=== PATIENT | male | born 2000 | race Asian ===

== ENCOUNTER 2020-01-05 22:38 | Inpatient (IN) | payer OTHER ==
--- NOTE | 2020-01-06 00:40 | ED ---
Psychiatric Complaint - HPI Summary HPI Summary: This patient is a 19 year old M presenting to ED with a chief complaint of paranoia since HEALTH SERVICES MANAGER. Patient reports there is a hole in his heart and he says his heart feels like its in pain. He states he woke up unconsciously 2 hours ago and put canola oil on his nervous system and left hand. He also put toothpaste on his neck and pack on a mole because he thinks its cancerous. Patient states he hasnt been sleeping for the past 2-3 days. He says that when he tries to sleep there is tingling all over his body, especially over his entire spine. He states his bones have been aching very bad. Patient says he has 4-5 days until he will be reincarnated. He thinks he will because he has a friend who because of a heart issue, and so patient thinks he will have a heart attack in his sleep. Patient is requesting a pen and paper. 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 Patient lives by himself. Patient [facility]. Patient thinks he has schizophrenia but he has never been diagnosed with it. He states he has had a problem since he was born and he thinks it is getting worse now. Patient does not take any medications. He denies using tobacco, alcohol, marijuana, and cocaine. Patient denies SI/HI. The patient rates the pain 0/10 in severity. Symptoms aggravated by nothing. Symptoms alleviated by nothing. - History Of Current Complaint Chief Complaint: EDMentalHealth Time Seen by Provider: 01/06/20 00:29 Hx Obtained From: Patient Onset/Duration: Gradual Onset Timing: Constant Severity Initially: Mild Severity Currently: Mild Aggravating Factor(s): Nothing Alleviating Factor(s): Nothing Associated Signs And Symptoms: Positive: Paranoid Behavior Has Suicidal: Denies: Thoughts Has Homicidal: Denies: Thoughts - Allergies/Home Medications Allergies/Adverse Reactions: Allergies Allergy/AdvReac Type Severity Reaction Status Date / Time No Known Allergies Allergy Unverified 01/06/20 20:24 Home Medications: Home Medications NK [No Home Medications Reported] 01/06/20 [History Confirmed 01/06/20] PMH/Surg Hx/FS Hx/Imm Hx Musculoskeletal History: Denies: Hx Rheumatoid Arthritis, Hx Osteoporosis Sensory History: Denies: Hx Legally Blind, Hx Deafness Opthamlomology History: Denies: Hx Legally Blind EENT History: Denies: Hx Deafness - Surgical History Surgical History: None Surgery Procedure, Year, and Place: Denies Infectious Disease History: No Infectious Disease History: Denies: Traveled Outside the [place] in Last 30 Days - Family History Known Family History: Negative: Hypertension, Diabetes - Social History Occupation: Unemployed Alcohol Use: None Hx Substance Use: No Substance Use Type: Reports: None Hx Tobacco Use: No Smoking Status (MU): Never Smoked Tobacco Review of Systems Cardiovascular: Other - "Hole in my heart" Skin: Other - Mole on back/neck Psychological: Other - Paranoid, negative SI/HI All Other Systems Reviewed And Are Negative: Yes Physical Exam - Summary Physical Exam Summary: Appearance: Well-appearing, Well-nourished, lying in bed comfortable Skin: Warm, dry, no obvious rash Eyes: sclera anicteric, no conjunctival pallor ENT: mucous membranes moist Neck: deferred Respiratory: No signs of respiratory distress Cardiovascular: Appears well perfused, pulses are nml Abdomen: deferred Musculoskeletal: Moving all 4 extremities without obvious discomfort Neurological: Awake and alert, mentation is normal, speech is fluent and appropriate Psychiatric: affect is normal, does not appear anxious or depressed. However he is easily distractible and has difficulty keeping a clean train of thought. He is very tangential and has multiple somatic concerns that are vaguely described. He does not seem to be suffering from internal stimuli. Triage Information Reviewed: Yes Vital Signs On Initial Exam: Initial Vitals Temp Pulse Resp BP Pulse Ox 99.3 F 104 15 158/103 97 01/05/20 22:52 01/05/20 22:52 01/05/20 22:52 01/05/20 22:52 01/05/20 22:52 Vital Signs Reviewed: Yes Procedures - Sedation Patient Received Moderate/Deep Sedation with Procedure: No Diagnostics - Vital Signs Vital Signs Temp Pulse Resp BP Pulse Ox 01/05/20 22:52 99.3 F 104 15 158/103 97 - Laboratory Result Diagrams: 01/06/20 00:45 01/06/20 00:44 Lab Statement: Any lab studies that have been ordered have been reviewed, and results considered in the medical decision making process. Course/Dx - Course Course Of Treatment: This patient is a 19 year old M presenting to ED with a chief complaint of paranoia since HEALTH SERVICES MANAGER. Blood work revealed MCH 33, anion gap 15 , glucose 102, calcium 10.6, total bilirubin 2.00, albumin 5.6. Patient is medically clear for MHE. Per Dr. Clayton, patient should be admitted, but there are no beds here, so patient will either be transferred or admitted to [facility] psych with dx of psychosis, depending on which comes first. Patient will be signed out to Dr. Gentile at 0700 on 01/06/2020 at shift change pending MH transfer. - Differential Dx/Clinical Impression Provider Diagnosis: Psychosis - Physician Notifications Discussed Care Of Patient With: Apollo Cuello Time Discussed With Above Provider: 04:45 Instructed by Provider To: Other - Discussed patient case with Apollo Cuello, social insurance analyst, who stated that Dr. Clayton, psychiatrist diagnosed with patient with psychosis and recommended the patient for admission. However, there are no beds, so the patient will either be transferred or admitted. Discharge ED - Sign-Out/Discharge Documenting (check all that apply): Sign-Out Patient Signing out patient TO: Garrick Gentile - Discharge Plan Condition: Stable Disposition: PSYCHIATRIC FACILITY-[facility] - Billing Disposition and Condition Condition: STABLE Disposition: Psychiatric Facility [facility] - Attestation Statements Document Initiated by Vicki: Yes Documenting Scribe: Alex Quinonez Provider For Whom Vicki is Documenting (Include Credential): Garrick Ken MD Scribfaisal Attestation: Alex Perez, scribed for Garrick Ken MD on 01/10/20 at 1820. Scribe Documentation Reviewed: Yes Provider Attestation: The documentation as recorded by the Alex lópez accurately reflects the service I personally performed and the decisions made by me, Garrick Ken MD Status of Scribe Document: Viewed
[2020-01-06 00:54] LABS: ABS Basophils 0.1 10^3/ul (0-0.2); ABS Lymphocytes 1.5 10^3/ul (1.0-4.8); ABS Monocytes 0.5 10^3/ul (0-0.8); ABS Neutrophils 5.2 10^3/ul (1.5-7.7); Eosinophil % 0.1 %; Hematocrit 48 % (42-52); Hemoglobin 16.9 g/dL (14.0-18.0); Lymphocyte % 20.9 %; Mean Corpuscular HGB Conc 36 g/dL (31-36); Mean Corpuscular Hemoglobin 33 pg (27-31); Mean Corpuscular Volume 92 fL (80-94); Mean Platelet Volume 9.9 fL (7.4-10.4); Platelet Count 288 10^3/uL (150-450); Red Blood Count 5.19 10^6 /uL (4.18-5.48); Red Cell Distribution Width 12 % (10-15); White Blood Count 7.2 10^3/uL (3.5-10.8)
[2020-01-06 01:06] LABS: ALT 10 U/L (7-52); AST 13 U/L (13-39); Albumin 5.6 g/dL (3.2-5.2); Albumin/Globulin Ratio 2.2 (1-3); Alkaline Phosphatase 43 U/L (34-104); Anion Gap 15 mmol/L (2-11); BUN/Creatinine Ratio 18.3 (8-20); Blood Urea Nitrogen 21 mg/dL (6-24); CO2 Carbon Dioxide 22 mmol/L (22-32); Calcium 10.6 mg/dL (8.6-10.3); Chloride 103 mmol/L (101-111); EGFR African American 99.1 (>60); EGFR Non-African American 81.9 (>60); Globulin 2.6 g/dL (2-4); Glucose 102 mg/dL (70-100); Potassium 4.1 mmol/L (3.5-5.0); Sodium 140 mmol/L (135-145); Total Protein 8.2 g/dL (6.4-8.9)
[2020-01-06 01:30] LABS: Acetaminophen < 15 mcg/mL; Alcohol < 10 mg/dL (<10); Salicylate < 2.50 mg/dL (<30)
[2020-01-06 01:45] LABS: TSH (Thyroid Stimulating Horm) 4.91 mcIU/mL (0.34-5.60)
--- NOTE | 2020-01-06 07:22 | ED ---
Progress - Progress Note Progress Note: Receiving sign-out from Dr. Ken at 0700 on 01/06/20 pending [facility] transfer. Patient continues to complain of same symptoms as before. Patient states he broke his intermittent fasting with eggs last night. He says he would like an EKG to assure that he is OK. EKG at 1116 reveals NSR at 74 BPM. This is a normal EKG. ED Physician has reviewed and interpreted this EKG. Patient will be signed out at shift change 1900 01/06/[address] Ken. Course/Dx - Course Course Of Treatment: Receiving sign-out from Dr. Ken at 0700 on 01/06/20 pending [facility] transfer. Patient continues to complain of same symptoms as before. Patient states he broke his intermittent fasting with eggs last night. He says he would like an EKG to assure that he is OK. EKG at 1116 reveals NSR at 74 BPM. This is a normal EKG. ED Physician has reviewed and interpreted this EKG. Patient will be signed out at shift change 1900 01/06/[address] Ken. - Diagnoses Provider Diagnoses: Psychosis - Provider Notifications Time Discussed With Above Provider: 04:45 Instructed by Provider To: Other - Discussed patient case with Apollo Cuello, healthcare social worker, who stated that Dr. Clayton, psychiatrist diagnosed with patient with psychosis and recommended the patient for admission. However, there are no beds, so the patient will either be transferred or admitted. Discharge ED - Sign-Out/Discharge Documenting (check all that apply): Sign-Out Patient, Receiving Sign-Out Signing out patient TO: Garrikc Ken Receiving patient FROM: Garrick Ken - Discharge Plan Condition: Stable Disposition: PSYCHIATRIC FACILITY-OTHER Referrals: Shai Toure MD [Primary Care Provider] - - Billing Disposition and Condition Condition: STABLE Disposition: Psychiatric Facility Other - Attestation Statements Document Initiated by Scribe: Yes Documenting Scribe: Ajith Vee Provider For Whom Vicki is Documenting (Include Credential): Garrick Gentile MD Scribfaisal Attestation: Ajith Perez, scribed for Garrick Gentile MD on 01/06/20 at 1915. Scribe Documentation Reviewed: Yes Provider Attestation: The documentation as recorded by the Ajith lópez accurately reflects the service I personally performed and the decisions made by me, Garrick Gentile MD Status of Scribe Document: Viewed
--- NOTE | 2020-01-06 11:24 | PN ---
ED Psychiatric Progress Note Date of Service: 01/06/20 Subjective: ED Day #1 for this 19 y.o. single, [place] male with no known psychiatric history who self-refers to the hospital, seeking admission with a list of bizarre, somatic complaints. He is quoted as telling the ED staff "I have a bunch of things happening. Mainly it is my heart that it is beating too fast and getting weaker. And, my nervous system is sending shocks through my body at about a seven out of ten. I have this weird problem since I was born that is "incurable" and I came here so I don't pass on in my mom's house and ruin the value." On exam with this clinician he is odd with poor eye contact and tells me that he is dying of "loneliness." I understand that he threw cereal inexplicably at a staff member earlier this morning. Objective: young male with dark hair, a moustache and earrings laying prone on bed; odd and non-sequitur statements; denies SI or HI Assessment: Unspecified Psychotic DO Plan: Will start trial of risperidone 1mg PO qday. No beds on Adult [facility] so will transfer to appropriate [facility] receiving facility. Vital Signs Temp Pulse Resp BP Pulse Ox 98.1 F 81 16 146/81 100 01/06/20 08:44 01/06/20 08:44 01/06/20 08:44 01/06/20 08:44 01/06/20 08:44 Lab Results - Entire Visit 01/06/20 01/06/20 00:45 00:44 WBC 7.2 RBC 5.19 Hgb 16.9 Hct 48 MCV 92 MCH 33 H MCHC 36 RDW 12 Plt Count 288 MPV 9.9 Neut % (Auto) 71.8 Lymph % (Auto) 20.9 [place] % (Auto) 6.4 Eos % (Auto) 0.1 Baso % (Auto) 0.8 Absolute Neuts (auto) 5.2 Absolute Lymphs (auto) 1.5 Absolute Monos (auto) 0.5 Absolute Eos (auto) 0.0 Absolute Basos (auto) 0.1 Absolute Nucleated RBC 0.0 Nucleated RBC % 0.0 Sodium 140 Potassium 4.1 Chloride 103 Carbon Dioxide 22 Anion Gap 15 H BUN 21 Creatinine 1.15 Est GFR ( Amer) 99.1 Est GFR (Non-Af Amer) 81.9 BUN/Creatinine Ratio 18.3 Glucose 102 H Calcium 10.6 H Total Bilirubin 2.00 H AST 13 ALT 10 Alkaline Phosphatase 43 Total Protein 8.2 Albumin 5.6 H Globulin 2.6 Albumin/Globulin Ratio 2.2 TSH 4.91 Salicylates < 2.50 Acetaminophen < 15 Serum Alcohol < 10
[2020-01-06] MEDS: risperiDONE-M * 1 MG TAB.ORADIS PO SCH (12:51)
[2020-01-06 13:03] LABS: Urine Appearance Clear; Urine Bilirubin Negative (Negative); Urine Blood Negative (Negative); Urine Color Yellow; Urine Glucose Negative (Negative); Urine Ketones 2+ (Negative); Urine Nitrite Negative (Negative); Urine Protein Negative (Negative); Urine Specific Gravity 1.018 (1.010-1.030); Urine Urobilinogen Negative (Negative)
[2020-01-06 13:14] LABS: Urine Benzodiazepine Screen None Detected (None Detect); Urine Opiates Screen None Detected (None Detect)
--- NOTE | 2020-01-06 19:59 | ED ---
Progress - Progress Note Progress Note: Patient is received as a sign out from Dr. Gentile to Dr. Ken at 1900 01/06/20 shift change pending transfer of this mental health patient. No changes in the status of this patient throughout ED shift. Patient is signed- out to Dr. Tobar at 0700 01/07/20 shift change, patient is currently slated to be transferred to another psychiatric facility. Course/Dx - Course Course Of Treatment: Patient is received as a sign out from Dr. Gentile to Dr. Ken at 1900 01/06/20 shift change pending transfer of this mental health patient. No changes in the status of this patient throughout ED shift. Patient is signed-out to Dr. Tobar at 0700 01/07/20 shift change, patient is currently slated to be transferred to another psychiatric facility. - Diagnoses Provider Diagnoses: Psychosis - Provider Notifications Time Discussed With Above Provider: 04:45 Instructed by Provider To: Other - Discussed patient case with Apollo Cuello, social media marketing analyst, who stated that Dr. Clayton, psychiatrist diagnosed with patient with psychosis and recommended the patient for admission. However, there are no beds, so the patient will either be transferred or admitted. Discharge ED - Sign-Out/Discharge Documenting (check all that apply): Sign-Out Patient, Receiving Sign-Out Signing out patient TO: Armando Tobar Receiving patient FROM: Brody Gentile - Discharge Plan Condition: Stable Disposition: [facility] - Billing Disposition and Condition Condition: STABLE Disposition: Psychiatric Facility [facility] - Attestation Statements Document Initiated by Alannahe: Yes Documenting Scribe: JESSICA WARD Provider For Whom Vicki is Documenting (Include Credential): BRODY KEN MD Scribe Attestation: JESSICA Perez, scribed for BRODY KEN MD on 01/11/20 at 0218. Scribe Documentation Reviewed: Yes Provider Attestation: The documentation as recorded by the JESSICA lópez accurately reflects the service I personally performed and the decisions made by BRODY saenz MD Status of Scribe Document: Viewed
[2020-01-06] MEDS ORDERED: OLANzapine TAB*ODT* 5 MG PO ONE (21:43)
--- NOTE | 2020-01-07 07:22 | ED ---
Progress - Progress Note Progress Note: Patient is a sign-out at 07:00 on 01/07/[address] Garrick Ken MD to Dr. Armando Tobar MD at shift change, pending mental health transfer to another psychiatric facility. At 13:20, Dr. Rod Clayton reviewed the patients case and will admit the patient to [facility] Psych. Course/Dx - Course Course Of Treatment: Patient is a sign-out at 07:00 on 01/07/[address] Garrick Ken MD to Dr. Armando Tobar MD at shift change, pending mental health transfer to another psychiatric facility. At 13:20, Dr. Rod Clayton reviewed the patients case and will admit the patient to [facility] Psych. - Diagnoses Provider Diagnoses: Psychosis - Provider Notifications Discussed Care Of Patient With: Rod Clayton - At 13:20, Dr. Rod Clayton reviewed the patients case and will admit the patient to [facility] Psych. Time Discussed With Above Provider: 13:20 Instructed by Provider To: Admit As Inpatient - Discussed patient case with Apollo Cuello, social director, who stated that Dr. Clayton, psychiatrist diagnosed with patient with psychosis and recommended the patient for admission. However, there are no beds, so the patient will either be transferred or admitted. Discharge ED - Sign-Out/Discharge Documenting (check all that apply): Patient Departure - Admit, Receiving Sign- Out Receiving patient FROM: Garrick Ken - Patient is a sign-out at 07:00 on 01/[address] Garrick Ken MD to Dr. Armando Tobar MD at shift change, pending mental health transfer to another psychiatric facility. - Discharge Plan Condition: Stable Disposition: PSYCHIATRIC FACILITY-[facility] - Attestation Statements Document Initiated by Scribe: Yes Documenting Scribe: Megan Serrano Provider For Whom Scribe is Documenting (Include Credential): Aramndo Tobar MD Scribe Attestation: Megan Perez, scribed for Armando Tobar MD on 01/07/20 at 1377. Status of Scribe Document: Ready
[2020-01-07] MEDS: risperiDONE-M * 1 MG TAB.ORADIS PO SCH (16:27)
[2020-01-07] MEDS ORDERED: Acetaminophen TAB* 325 MG PO PRN (19:40)
[2020-01-07] MEDS ORDERED: Al Hydrox/Mg Hydrox/Simet LIQ* 30 ML UDC PO PRN (19:40)
[2020-01-07] MEDS ORDERED: Haloperidol TAB* 5 MG PO PRN (19:42)
[2020-01-07] MEDS: LORazepam TAB(*) 1 MG PO PRN (20:39)
[2020-01-08 07:43] LABS: HDL Cholesterol 39.8 mg/dL
[2020-01-08] MEDS: risperiDONE-M * 1 MG TAB.ORADIS PO SCH (08:45)
[2020-01-08] MEDS: Vitamin THERAPEUTIC TAB PO SCH (08:47)
--- NOTE | 2020-01-08 17:12 | HP ---
HISTORY AND PHYSICAL: DATE OF ADMISSION: 01/07/20 PROVIDER: Tomasa Segura NP, in Psychiatry. SUPERVISING PHYSICIAN: Rod Clayton MD * (DICTATED BY TOMASA SEGURA NP) JUSTIFICATION FOR ADMISSION: The patient is in need of 24-hour supervision and care secondary to gross disorganization. CHIEF COMPLAINT: "I've heart cancer, ADHD, and schizophrenia." HISTORY OF PRESENT ILLNESS: The patient is a 19-year-old single [place] male with no history of mental illness until recently, who arrives, brought in by himself and was here on a voluntary status after feeling as though he has heart cancer and other kinds of cancer that he is not sure of in addition to other odd somatic complaints that he feels like he needs to be checked out for. "Golden" is a 19-year-old man who complains that he has ADHD and schizophrenia. He also complained that he had heart cancer. The heart cancer worry was eliminated by discussing that he had a normal EKG. He believes he has ADHD because of his hairline "one sideburn is a little bit higher than the other side." He also believes he has schizophrenia. This he states is obvious because "sometimes it's hard to say what is on my mind without background noise... when I'm sad I tell myself to calm down and I start laughing. When I' m really sad, I laugh a lot." He also states he is trying to be a child of God and in the next sentence states that he believes he is an atheist. He denies symptoms of depression. He is delusional. His focus is on the somatic. PAST PSYCHIATRIC HISTORY: He has no prior psychiatric history. He has never taken psychiatric medications. He has never been treated outpatient. When I spoke with his mother, she stated that he has never had any psychiatric symptoms and she saw no evidence of it in her home. It should be noted, however , that he did have a psychiatric evaluation in 2012 for suicide and he has dropped out of college twice for vague reasons such as wanting to be at home where it is more comfortable. FORENSIC ISSUES: He denies access to weapons. He denies any history of violence. SUBSTANCE ABUSE: He denies substance abuse. He was positive for marijuana, but he states "I tried one tiny bowl before I came to the hospital, but it's not for me." PAST MEDICAL HISTORY: He denies having medical history of any significance. FAMILY HISTORY: He said his father overuses alcohol and uses nicotine and his mother he states has a history in the family of myocardial infarction. SOCIAL HISTORY: Golden lives at home with his mother. His mother travels to [place] and is gone for many days at a time and does not always know what Golden is doing. Golden went to [employer] a few years ago, but dropped out of there, stating he wanted to be at home where it was more comfortable, according to his mother. He then went to [employer] where he was working on a degree in liberal arts or possibly nursing. He also dropped out of that. He lives alone except for when his mother is at home. Mom indicates that there is nothing that has gone wrong. It is interesting, however, that he left 2 colleges with little explanation. It is hard to get an explanation out of Golden at this time as he is quite disorganized. He is not employed. He has never been in the . He has no legal problems. REVIEW OF SYSTEMS: The patient reports feeling alert. He denies shortness of breath, heat or cold intolerance, chest pain or abdominal pain. He denies neurological symptoms. He denies fevers or changes in weight. PHYSICAL EXAMINATION GENERAL APPEARANCE: Well appearing, well nourished, sitting across me at a table comfortably. VITAL SIGNS: On 01/08/20 at 0800, temperature was 97.5, pulse 85, respirations 16, O2 sat on room air 100%, blood pressure 136/61. HEENT: Eyes: Sclerae anicteric. No conjunctival pallor. ENT: Mucous membranes moist. NECK: Deferred. RESPIRATORY: No signs of respiratory distress. CARDIOVASCULAR: Appears well perfused. Pulses are normal. ABDOMEN: Deferred. MUSCULOSKELETAL: Moving all 4 extremities without obvious discomfort. NEUROLOGICAL: Awake and alert. Mentation is normal. Speech is fluent and appropriate. SKIN: Warm, dry. No obvious rash. LABORATORY DATA: Labs are generally within normal limits. Exceptions include MCH high at 33, anion gap high at 15, glucose high at 102, calcium 10.6, total bilirubin 2, albumin 5.6. Also, please note that his hemoglobin A1c on at 0709 is 4.3, triglycerides are 94, cholesterol 137, LDL cholesterol 78, HDL cholesterol 39.8. TSH is 4.91. Urine screen: 2+ positive for urine ketones. Toxicology is positive for cannabinoids. MENTAL STATUS EXAMINATION: Donavon James is a 5-feet 8-inch, 150-pound man of [place] descent, who has a mustache and dark hair and dark eyes. He sits quite still with an erect posture. He is calm and cooperative. His speech has a normal rate, tone, and volume. He appears to be euthymic. His affect is restricted. His thought processes appear to be sequential until he comes up with an odd sentence that seems to interrupt flow of thought. He is delusional specifically about somatically focused things. He is not homicidal or suicidal. He does not indicate that he is hallucinating. His insight is poor. His judgment is poor. He is alert and oriented x4. DIAGNOSIS: Psychotic disorder. IMPRESSION: Golden is a 19-year-old man who comes to the hospital and is given a diagnosis of psychosis at this time. He came due to his beliefs that he has a variety of cancers and wanted to get checked out. In the process of getting checked out, he was flagged for mental health evaluation and has been admitted on the B[facility]. PLAN: The patient is admitted to the adult behavioral health unit and placed q.15 minute checks for his own safety. He is encouraged to participate in supportive milieu, individual and group therapies. We will start risperidone with a future prospect of injectable Invega Sustenna. Estimated length of stay is 5 to 7 days. We will titrate medications to efficacy and monitor for mood and thought content. Discharge planning will include family involvement and outpatient providers. TOMASA SEGURA, CHLOE [id number]/CPS #: [id number] JENNIFER
[2020-01-09] MEDS: LORazepam TAB(*) 1 MG PO PRN (00:22)
[2020-01-09] MEDS: Vitamin THERAPEUTIC TAB PO SCH (07:43)
[2020-01-09] MEDS: risperiDONE-M * 1 MG TAB.ORADIS PO SCH (07:43)
--- NOTE | 2020-01-09 11:28 | PN ---
Subjective - Subjective Date of Service: 01/09/20 Service Type: 06507 Hosp care 15 min low complexity Subjective: "Golden" is doing better today. He is more organized and seems aware of that. He commented that his mental health is better today. He still believes he has ADHD and suggested that Adderall might be helpful. He no longer believes he has schizophrenia and states that his statements yesterday don't ring true today. He also no longer believes he has cancer of any variety, although he remembers coming to the hospital with those complaints. He took the risperidone ODT 1 mg yesterday evening and now is willing to take 3 mg of risperidone. Objective - General Observations Appearance: Neat Appears Stated Age: Yes Stature: WNL Posture: WNL Eye Contact: Average Behavior/Activity: WNL - Interaction Observations Attitude Towards Examiner: Cooperative, Anxious, Confused Stated Mood: Dysphoric Affect: Blunted Speech Pattern/Tone: Clear, Appropriate, Normal Volume Thought Process: Coherent, Disorganized, Holloway Perception: WNL Hallucination Type: Denies Delusion Type: Denies, Somatic - Cognitive Function Orientation: A&O x 4 Level of Consciousness: Awake, Alert, Appropriate Cognition: Impaired Cognition, Impaired Ability to Abstract Estimated Intelligence: Normal Insight: Difficulty Acknowledging Presence of Psyciatric Problems Judgment Within Normal Limits: No Ability to Make Reasonable Decisions: Moderately Impaired - Medication Compliance Cooperative with Inpatient Medication Regimen: Yes - Group Participation Participates in Group Activities: Partial Assessment - Assessment Merits Inpatient Hospitalization: For Immediate Safety Clinical Impression: Donavon Wills" is a 19-year-old Micronesian man with a psychotic disorder who comes to the emergency department with delusional beliefs regarding the presence of cancers in his body and methods to treat them. Plan - Plan Treatment Plan: Name: DONAVON DACOSTA Birthdate: 2000 [id number] 01/09/2020 Golden has improved significantly since the start of Risperdal. We will increase from 1 to 3 mg tonight. Anticipate starting injectable and discharging Tuesday. Continued Medication Management: Different Medication Medications: Current Medications Acetaminophen (Tylenol Tab*) 650 mg PO Q4H PRN PRN Reason: for pain; or Temp >101 F Al Hydrox/Mg Hydrox/Simethicone (Maalox Plus*) 30 ml PO Q4H PRN PRN Reason: INDIGESTION Haloperidol (Haldol Tab*) 5 mg PO Q6H PRN PRN Reason: AGITATION Lorazepam (Ativan Tab(*)) 2 mg PO Q6H PRN PRN Reason: ANXIETY Last Admin: 01/09/20 00:22 Dose: 2 mg Multivitamins (Theragran Tab*) 1 tab PO DAILY [facility] Last Admin: 01/09/20 07:43 Dose: 1 tab Risperidone (Risperdal*) 3 mg PO BEDTIME [facility] - Discharge Plan Discharge Plan: Outpatient Follow Up Outpatient Program: [facility]
--- NOTE | 2020-01-09 16:05 | PN ---
BSU: Group Therapy Note - Service Type Service Type: 03621 Group Psychotherapy - "Golden" came to group, but he did not participate. At one point he appeared to be crying and burying his head in his hands. He stated he was fine, however. He did not add to the group. - Group Participation Patient Participating in Group: Yes Level of Group Participation: Non-participatory Relatedness to Group: Other
[2020-01-09] MEDS: risperiDONE TAB* 3 MG PO SCH (20:16)
[2020-01-10] MEDS: Vitamin THERAPEUTIC TAB PO SCH (09:45)
--- NOTE | 2020-01-10 13:38 | PN ---
Subjective - Subjective Date of Service: 01/10/20 Service Type: 81047 Hosp care 25 min moderate complexity Subjective: Donavon Wills" was found sitting at a table with his head down. When he looked up, he had tears on his face, but he didn't want to talk and only shook his head "no" when asked if he wanted to talk about it. When found later, he was in group. He was not attentive to the conversation and seemed to be thinking about other things. When taken out of the group, he had little to say, minimizing any odd thoughts and speaking as little as possible. Objective - General Observations Appearance: Neat Appears Stated Age: Yes Stature: WNL Posture: Rigid Eye Contact: Intense Behavior/Activity: Peculiar - Interaction Observations Attitude Towards Examiner: Cooperative, Evasive Stated Mood: Dysphoric Affect: Labile Speech Pattern/Tone: Clear, Appropriate, Normal Volume Thought Process: Disorganized Perception: WNL Hallucination Type: Denies Delusion Type: Denies - Cognitive Function Orientation: A&O x 4 Level of Consciousness: Awake, Alert, Appropriate Cognition: Impaired Cognition, Impaired Attention/Concentration Estimated Intelligence: Normal Insight: Difficulty Acknowledging Presence of Psyciatric Problems Judgment Within Normal Limits: No Ability to Make Reasonable Decisions: Serverely Impaired - Medication Compliance Cooperative with Inpatient Medication Regimen: Yes - Group Participation Participates in Group Activities: Partial Assessment - Assessment Merits Inpatient Hospitalization: For Immediate Safety Clinical Impression: Donavon Wills" is a 19-year-old Thai man with a psychotic disorder who comes to the emergency department with delusional beliefs regarding the presence of cancers in his body and methods to treat them. Plan - Plan Treatment Plan: Name: DONAVON DACOSTA Birthdate: 2000 [id number] 01/09/2020 Golden has improved significantly since the start of Risperdal. We will increase from 1 to 3 mg tonight. Anticipate starting injectable and discharging Tuesday. 01/10/2020 Golden has not improved as much as projected. He will not be discharged Tuesday. We will meet together again today to see how he's feeling and how he's improved , as his presentation remains bizarre and he continues to minimize what is happening to him. Medications: Current Medications Acetaminophen (Tylenol Tab*) 650 mg PO Q4H PRN PRN Reason: for pain; or Temp >101 F Al Hydrox/Mg Hydrox/Simethicone (Maalox Plus*) 30 ml PO Q4H PRN PRN Reason: INDIGESTION Haloperidol (Haldol Tab*) 5 mg PO Q6H PRN PRN Reason: AGITATION Lorazepam (Ativan Tab(*)) 2 mg PO Q6H PRN PRN Reason: ANXIETY Last Admin: 01/09/20 00:22 Dose: 2 mg Multivitamins (Theragran Tab*) 1 tab PO DAILY [facility] Last Admin: 01/10/20 09:45 Dose: Not Given Risperidone (Risperdal*) 3 mg PO BEDTIME [facility] Last Admin: 01/09/20 20:16 Dose: 3 mg
[2020-01-10] MEDS: risperiDONE TAB* 3 MG PO SCH (19:06)
[2020-01-11] MEDS: Vitamin THERAPEUTIC TAB PO SCH (10:37)
--- NOTE | 2020-01-11 16:31 | PN ---
Subjective - Subjective Date of Service: 01/11/20 Service Type: 29576 Hosp care 15 min low complexity Subjective: "Golden" reports that he feels like walking cancer and "mentally weird." In nearly the same breath, he asserts "I can't change who I am." Golden is emotionally labile, appearing quite unhappy at times and then moving into a state of calm and pleasantness that is at odds with what he seemed to be experiencing earlier. Objective - General Observations Appearance: Neat Appears Stated Age: Yes Stature: Thin Posture: WNL Eye Contact: Intense Behavior/Activity: Peculiar - Interaction Observations Attitude Towards Examiner: Cooperative, Anxious, Evasive Attitude Towards Parent/Guardian: Ignores Parent/Guardian Stated Mood: Dysphoric Affect: Labile Speech Pattern/Tone: Clear, Appropriate, Normal Volume Thought Process: Coherent, Loose Associations Perception: WNL Thought Content: Preoccupation/Ruminations, Obsessional Hallucination Type: None Delusion Type: Somatic - Cognitive Function Orientation: A&O x 4 Level of Consciousness: Awake, Alert, Appropriate Cognition: Impaired Cognition Estimated Intelligence: Normal Insight: Difficulty Acknowledging Presence of Psyciatric Problems Judgment Within Normal Limits: No Ability to Make Reasonable Decisions: Mildly Impaired - Medication Compliance Cooperative with Inpatient Medication Regimen: Yes - Group Participation Participates in Group Activities: Partial Assessment - Assessment Merits Inpatient Hospitalization: For Immediate Safety Clinical Impression: Donavon Wills" is a 19-year-old Anguillan man with a psychotic disorder who comes to the emergency department with delusional beliefs regarding the presence of cancers in his body and methods to treat them. Plan - Plan Treatment Plan: Name: DONAVON DACOSTA Birthdate: 2000 [id number] 01/09/2020 Golden has improved significantly since the start of Risperdal. We will increase from 1 to 3 mg tonight. Anticipate starting injectable and discharging Tuesday. 01/10/2020 Golden has not improved as much as projected. He will not be discharged Tuesday. We will meet together again today to see how he's feeling and how he's improved , as his presentation remains bizarre and he continues to minimize what is happening to him. 01/11/2020 Golden will stay for the weekend and then be discharged, with the caveat that he will have maintained or improved his level of functioning. Medications: Current Medications Acetaminophen (Tylenol Tab*) 650 mg PO Q4H PRN PRN Reason: for pain; or Temp >101 F Al Hydrox/Mg Hydrox/Simethicone (Maalox Plus*) 30 ml PO Q4H PRN PRN Reason: INDIGESTION Haloperidol (Haldol Tab*) 5 mg PO Q6H PRN PRN Reason: AGITATION Lorazepam (Ativan Tab(*)) 2 mg PO Q6H PRN PRN Reason: ANXIETY Last Admin: 01/09/20 00:22 Dose: 2 mg Multivitamins (Theragran Tab*) 1 tab PO DAILY [facility] Last Admin: 01/11/20 10:37 Dose: Not Given Risperidone (Risperdal*) 3 mg PO BEDTIME [facility] Last Admin: 01/10/20 19:06 Dose: 3 mg - Discharge Plan Discharge Plan: Outpatient Follow Up
[2020-01-11] MEDS: risperiDONE TAB* 3 MG PO SCH (20:15)
[2020-01-11] MEDS: Docusate CAP* 100 MG PO SCH (20:15)
[2020-01-11] MEDS: hydrOXYzine HCL TAB* 50 MG PO SCH (20:16)
[2020-01-12] MEDS: Vitamin THERAPEUTIC TAB PO SCH (09:02)
[2020-01-12] MEDS: Docusate CAP* 100 MG PO SCH ×2 (09:45→21:00)
--- NOTE | 2020-01-12 20:46 | PN ---
Subjective - Subjective Date of Service: 01/12/20 Service Type: [id number] Hosp care 15 min low complexity Subjective: Mood reported as "currently happy." Denies any psychotic symptoms. Denies any dangerous thoughts to harm self or others. Sleeping well. Reports concerns about cancer are past. Reports when he came to the hospital his ADHD was acting up, but unable to get clear on how this relates to delusions on presentation. He clarifies this as attentional deficits hampering communication. Objective - General Observations Appearance: Neat, Well Groomed Appears Stated Age: Yes Stature: WNL Posture: WNL Eye Contact: Average Behavior/Activity: Peculiar - Interaction Observations Attitude Towards Examiner: Cooperative Stated Mood: Euthymic Affect: Restricted Speech Pattern/Tone: Clear, Appropriate, Normal Volume Thought Process: Coherent, Goal Directed, Disorganized - slightly Hallucination Type: None Delusion Type: Denies - Cognitive Function Orientation: A&O x 4 Level of Consciousness: Awake, Alert, Appropriate Estimated Intelligence: Normal Insight: WNL Judgment Within Normal Limits: No Ability to Make Reasonable Decisions: Mildly Impaired - Medication Compliance Cooperative with Inpatient Medication Regimen: Yes - Group Participation Participates in Group Activities: Yes Assessment - Assessment Merits Inpatient Hospitalization: For Stabilization, For Ongoing Evaluation Clinical Impression: Donavon Wills" is a 19-year-old Comoran man with a psychotic disorder who comes to the emergency department with delusional beliefs regarding the presence of cancers in his body and methods to treat them. 01.12.20 Golden reports tonight resolution of concerns about cancer. He still presents as a bit odd, but explicit report is that all is well. Plan - Plan Treatment Plan: Name: DONAVON DACOSTA Birthdate: 2000 [id number] 01/09/2020 Golden has improved significantly since the start of Risperdal. We will increase from 1 to 3 mg tonight. Anticipate starting injectable and discharging Tuesday. 01/10/2020 Golden has not improved as much as projected. He will not be discharged Tuesday. We will meet together again today to see how he's feeling and how he's improved , as his presentation remains bizarre and he continues to minimize what is happening to him. 01/12/20 Denies any need for med adjustment or change of plan from his perspective. Reports remission of symptoms, but seems still to be minimizing his problems. Medications: Current Medications Acetaminophen (Tylenol Tab*) 650 mg PO Q4H PRN PRN Reason: for pain; or Temp >101 F Al Hydrox/Mg Hydrox/Simethicone (Maalox Plus*) 30 ml PO Q4H PRN PRN Reason: INDIGESTION Docusate Sodium (Colace Cap*) 100 mg PO BID [facility] Last Admin: 01/12/20 09:45 Dose: 100 mg Haloperidol (Haldol Tab*) 5 mg PO Q6H PRN PRN Reason: AGITATION Hydroxyzine HCl (Atarax Tab*) 50 mg PO BEDTIME [facility] Last Admin: 01/11/20 20:16 Dose: 50 mg Lorazepam (Ativan Tab(*)) 2 mg PO Q6H PRN PRN Reason: ANXIETY Last Admin: 01/09/20 00:22 Dose: 2 mg Multivitamins (Theragran Tab*) 1 tab PO DAILY [facility] Last Admin: 01/12/20 09:02 Dose: Not Given Risperidone (Risperdal*) 3 mg PO BEDTIME [facility] Last Admin: 01/11/20 20:15 Dose: 3 mg - Discharge Plan Discharge Plan: Outpatient Follow Up Outpatient Program: [facility]
[2020-01-12] MEDS: hydrOXYzine HCL TAB* 50 MG PO SCH (21:00)
[2020-01-12] MEDS: risperiDONE TAB* 3 MG PO SCH (21:00)
[2020-01-13] MEDS: Vitamin THERAPEUTIC TAB PO SCH (07:39)
[2020-01-13] MEDS: Docusate CAP* 100 MG PO SCH ×2 (09:29→20:28)
[2020-01-13] MEDS: Senna TAB 8.6 mg* TAB PO PRN (16:27)
[2020-01-13] MEDS: hydrOXYzine HCL TAB* 50 MG PO SCH (20:28)
[2020-01-13] MEDS: risperiDONE TAB* 3 MG PO SCH (20:28)
[2020-01-14] MEDS: Vitamin THERAPEUTIC TAB PO SCH (09:57)
[2020-01-14] MEDS: Docusate CAP* 100 MG PO SCH ×2 (09:57→20:19)
--- NOTE | 2020-01-14 15:38 | PN ---
Subjective - Subjective Date of Service: 01/14/20 Service Type: 49967 Hosp care 25 min moderate complexity Subjective: Catrachita Wills" is bright and seems well. He denies concern about his health and states the cancer concerns are in the past. Interestingly, he then states he wants to discuss ECT. He states he believes he had it done in the hospital here , took a nap, and then felt better. When I explained that this was an EKG and that was how we verified that his heart was okay, he seemed surprised. He is complaining of feeling "weird". It is possible that he is not enjoying the sensation of being on Risperdal; nevertheless, we will proceed with the use same medication in an effort to achieve a reduced level of psychosis and sooner discharge. Objective - General Observations Appearance: Neat, Well Groomed Appears Stated Age: No - older Stature: Thin Posture: WNL Eye Contact: Intense Behavior/Activity: Peculiar - Interaction Observations Attitude Towards Examiner: Cooperative Stated Mood: Euthymic Affect: Bright Speech Pattern/Tone: Clear, Appropriate, Normal Volume Thought Process: Coherent, Goal Directed Perception: WNL Thought Content: Preoccupation/Ruminations Hallucination Type: Denies Delusion Type: Denies, Somatic - Cognitive Function Orientation: A&O x 4 Level of Consciousness: Awake, Alert, Appropriate Cognition: Impaired Cognition Estimated Intelligence: Normal Judgment Within Normal Limits: No Ability to Make Reasonable Decisions: Mildly Impaired - Medication Compliance Cooperative with Inpatient Medication Regimen: Yes - Group Participation Participates in Group Activities: Yes Assessment - Assessment Merits Inpatient Hospitalization: For Immediate Safety Clinical Impression: Donavon Wills" is a 19-year-old Estonian man with a psychotic disorder who comes to the emergency department with delusional beliefs regarding the presence of cancers in his body and methods to treat them. BSU: Problem List - Patient Problems (1) Psychotic disorder Current Visit: Yes Status: Acute Plan - Plan Treatment Plan: Name: DONAVON DACOSTA Birthdate: 2000 [id number] 01/09/2020 Golden has improved significantly since the start of Risperdal. We will increase from 1 to 3 mg tonight. Anticipate starting injectable and discharging Tuesday. 01/10/2020 Golden has not improved as much as projected. He will not be discharged Naeem. We will meet together again today to see how he's feeling and how he's improved , as his presentation remains bizarre and he continues to minimize what is happening to him. 01/11/2020 Golden will stay for the weekend and then be discharged, with the caveat that he will have maintained or improved his level of functioning. 01/14/2020 Risperdal Consta 50 mg was ordered to be administered, with Golden's agreement. He will be discharged tomorrow. He states he is eager to get back to his life. Continued Medication Management: Different Medication Medications: Current Medications Acetaminophen (Tylenol Tab*) 650 mg PO Q4H PRN PRN Reason: for pain; or Temp >101 F Al Hydrox/Mg Hydrox/Simethicone (Maalox Plus*) 30 ml PO Q4H PRN PRN Reason: INDIGESTION Docusate Sodium (Colace Cap*) 100 mg PO BID [facility] Last Admin: 01/14/20 09:57 Dose: 100 mg Haloperidol (Haldol Tab*) 5 mg PO Q6H PRN PRN Reason: AGITATION Hydroxyzine HCl (Atarax Tab*) 50 mg PO BEDTIME [facility] Last Admin: 01/13/20 20:28 Dose: 50 mg Lorazepam (Ativan Tab(*)) 2 mg PO Q6H PRN PRN Reason: ANXIETY Last Admin: 01/09/20 00:22 Dose: 2 mg Multivitamins (Theragran Tab*) 1 tab PO DAILY [facility] Last Admin: 01/14/20 09:57 Dose: 1 tab Risperidone (Risperdal*) 3 mg PO BEDTIME [facility] Last Admin: 01/13/20 20:28 Dose: 3 mg Risperidone (Risperdal Consta*) 50 mg IM ONCE ONE Stop: 01/14/20 16:01 Senna (Senokot 8.6 Mg Tab*) 2 tab PO BID PRN PRN Reason: CONSTIPATION Last Admin: 01/13/20 16:27 Dose: 2 tab - Discharge Plan Discharge Plan: Outpatient Follow Up Outpatient Program: [facility]
[2020-01-14] MEDS ORDERED: risperiDONE CONSTA* 50 MG IM ONE (16:00)
[2020-01-14] MEDS: risperiDONE TAB* 3 MG PO SCH (20:20)
[2020-01-14] MEDS: hydrOXYzine HCL TAB* 50 MG PO SCH (20:20)
[2020-01-15 08:45] VITALS: BP 131/57
[2020-01-15] MEDS: Docusate CAP* 100 MG PO SCH ×2 (09:32→21:42)
[2020-01-15] MEDS: Vitamin THERAPEUTIC TAB PO SCH (09:32)
[2020-01-15] MEDS ORDERED: risperiDONE CONSTA* 50 MG IM ONE (10:00)
[2020-01-15] MEDS: risperiDONE TAB* 3 MG PO SCH (21:42)
[2020-01-15] MEDS: hydrOXYzine HCL TAB* 50 MG PO SCH (21:42)
[2020-01-16] MEDS: Senna TAB 8.6 mg* TAB PO PRN (05:18)
[2020-01-16] MEDS: Docusate CAP* 100 MG PO SCH (10:19)
[2020-01-16] MEDS: Vitamin THERAPEUTIC TAB PO SCH (10:19)
--- NOTE | 2020-01-18 09:26 | DS ---
CC: [facility]; Dr. Shai Toure * DISCHARGE SUMMARY: DATE OF ADMISSION: 01/07/20 DATE OF DISCHARGE: 01/16/20 PROVIDER: Tomasa Segura NP, in Psychiatry. SUPERVISING PHYSICIAN: Dr. Rod Clayton.* (DICTATED BY TOMASA SEGURA NP) DIAGNOSIS: Schizophrenia. CONDITION AT THE TIME OF DISCHARGE: Moderately improved, psychiatrically cleared, stable, participated in groups. He was slightly social with peers. He is eager for discharge. His mother was contacted, but did not respond. He was symptomatic throughout his stay, but he did take Risperdal and he tolerated that medication well. He also agreed to long-acting Risperdal Consta 50 mg. He will attend [facility]. MENTAL STATUS EXAMINATION: At the time of discharge, Golden is calm and cooperative. He makes intense eye contact. He is alert and oriented x4. His grooming is good. His speech pace is normal. His thought processes are logical. He is delusional. He is denying AH, VH, SI, and HI. He denies psychosis. Insight and judgment are fair. He states he is going to follow up. He is urged to see a therapist. DISCHARGE INSTRUCTIONS TO THE PATIENT: A. Medications: 1. Docusate 100 mg twice a day. 2. Hydroxyzine 50 mg at bedtime. 3. Risperdal 3 mg at bedtime. 4. Senna 2 tabs b.i.d. 5. Additionally, he received Risperdal Consta on 01/15/20. B. Diet is regular. C. Activities as tolerated. He is a nonsmoker. There are no studies pending at the time of discharge. D. Followup care: He is referred to [facility]. He has an appointment on 01/22/20 at 10 a.m. with Charlene Rodriguez. He is also advised to see his primary care provider, Shai Toure, within 30 days. He has also been referred to [facility]. He is going to be phoned to establish case management. His referral ID is [id number]. E. Disposition: He is going home to the home he shares with his mother. F. Substance abuse followup is not indicated. HOSPITAL COURSE: Part A: Chief complaint: "I've heart cancer, ADHD, and schizophrenia." The patient is a 19-year-old [place] male with no history of mental illness until recently, who arrives brought in by himself and was here on a voluntary status after feeling as though he has heart cancer and other kinds of cancer that he is not sure of in addition to other odd somatic complaints that he feels he needs to be checked out for. "Golden" is a 19-year-old man who complains that he has ADHD and schizophrenia. He also complained that he has heart cancer. The heart cancer worry was eliminated by discussing that he had a normal EKG. He believes he has ADHD because of his hairline "one sideburn is a little higher than the other side." He also believes he has schizophrenia. This, he states is obvious because "sometimes it's hard to say what is on my mind without background noise... when I'm sad, I tell myself to calm down and I start laughing. When I'm really sad, I laugh a lot." He also states he is trying to be a child of God and in the next sentence that he believes he is an atheist. He denies symptoms of depression. He is delusional. His focus is on the somatic. Part B: Psychiatric treatment was rendered: Golden was admitted to the adult behavioral unit and placed on 15-minute checks for safety. Golden behaved well on the unit and he went to groups. He did not interact with peers very much. He tolerated the addition of Risperdal, although he did not particularly like it and he did agree to take the injection of 50 mg of Risperdal Consta on . As he is on an antipsychotic, it is important to note that his hemoglobin A1c is 4.3, triglycerides are 94, cholesterol 137, LDL cholesterol 78, HDL 39.8. I did meet with his mother. It is important to note that when she visited him, he avoided her. She came several times and he would walk around the unit without her, he would take a shower multiple times while she was there, and he tended to avoid her in general. When I met with her, she did not perceive anything to be wrong. She stated that he has been fine until recently. It also should be noted that his mother is not home all the time as she travels to [place] for work and stays there for days at a time. No consults were entered for Golden. He is improved. He denies somatic complaints. He states his worries about cancer are over and long in the past. He does have odd believes such as wanting ECT because it helped him feel better. His interpretation of ECT, however, is the EKG he received in the emergency department. Golden will benefit from continued medication therapy. He was prescribed Risperdal on discharge, although the last day he was here he did decline to take it, and therefore, his coverage of antipsychotic may be too low until the Consta takes effect in a few weeks. TOMASA SEGURA, CHLOE [id number]/[facility] #: [id number] MTDD
== END 2020-01-16 13:00 | disposition home or self-care (01) | DRG 751 ==
LOC: ED 22:38 → BSU 01-07 11:19
PROVIDERS: ADMIT Psychiatry & Neurology Psychiatry; ATTEND Psychiatry & Neurology Psychiatry
DX: F29 Unspecified psychosis not due to a substance or known physiological condition (principal); Z81.1 Family history of alcohol abuse and dependence; Z81.2 Family history of tobacco abuse and dependence; Z82.49 Family history of ischemic heart disease and other diseases of the circulatory system
CPT/HCPCS: 36415; 80053; 80061; 80307; 80320; 80329; 81003; 83036; 84443; 85025; 93005; 99222; 99231; 99232; 99238; 99284; A9270-GY; G0480

== ENCOUNTER 2020-01-17 02:36 | Emergency (ER) | payer OTHER ==
[2020-01-17 03:16] LABS: ABS Basophils 0.1 10^3/ul (0-0.2); ABS Eosinophils 0.1 10^3/ul (0-0.6); ABS Lymphocytes 1.7 10^3/ul (1.0-4.8); ABS Monocytes 0.6 10^3/ul (0-0.8); ABS Neutrophils 3.7 10^3/ul (1.5-7.7); Eosinophil % 1.1 %; Hematocrit 45 % (42-52); Hemoglobin 15.4 g/dL (14.0-18.0); Lymphocyte % 28.1 %; Mean Corpuscular HGB Conc 34 g/dL (31-36); Mean Corpuscular Hemoglobin 32 pg (27-31); Mean Corpuscular Volume 93 fL (80-94); Nucleated Red Blood Cells % 0.1; Platelet Count 294 10^3/uL (150-450); Red Blood Count 4.85 10^6 /uL (4.18-5.48); Red Cell Distribution Width 12 % (10-15); White Blood Count 6.1 10^3/uL (3.5-10.8)
--- NOTE | 2020-01-17 03:20 | ED ---
Psychiatric Complaint - HPI Summary HPI Summary: 19 year old M arriving via private car to [facility] complains of worsening depression since 12 hours ago. Patient was recently admitted to [facility] for 1 week. He was discharged from [facility] yesterday 01/16/2020 PM. Patient states his mother came home suddenly which stressed him out and worsened his depression. Patient denies suicidal ideation. Symptoms aggravated by recent stress. Symptoms alleviated by nothing. Medications reviewed. PMHx reviewed. Surgical hx reviewed. FHx reviewed. No alcohol, recreational drug or tobacco use prior to arrival today. - History Of Current Complaint Chief Complaint: EDMentalHealth Time Seen by Provider: 01/17/20 02:58 Hx Obtained From: Patient Onset/Duration: Lasting Hours - 12, Still Present Timing: Constant Aggravating Factor(s): Recent Stress Alleviating Factor(s): Nothing Has Suicidal: Denies: Thoughts - Allergies/Home Medications Allergies/Adverse Reactions: Allergies Allergy/AdvReac Type Severity Reaction Status Date / Time No Known Allergies Allergy Verified 01/17/20 03:12 Home Medications: Home Medications Docusate CAP* [Colace Cap*] 100 mg PO BID #60 cap 01/16/20 [Rx Confirmed ] Senna TAB 8.6 mg* [Senokot 8.6 mg TAB*] 2 tab PO BID PRN #30 tab 01/16/20 [Rx Confirmed 01/17/20] hydrOXYzine HCL TAB* [Atarax TAB 50 MG *] 50 mg PO BEDTIME #30 tab 01/16/20 [Rx Confirmed 01/17/20] risperiDONE TAB* [Risperdal*] 3 mg PO BEDTIME #30 tab 01/16/20 [Rx Confirmed ] PMH/Surg Hx/FS Hx/Imm Hx Endocrine/Hematology History: Denies: Hx Diabetes Cardiovascular History: Denies: Hx Hypertension Psychiatric History: Reports: Hx Schizophrenia - Surgical History Surgery Procedure, Year, and Place: Denies - Immunization History Immunizations Up to Date: Yes Infectious Disease History: No Infectious Disease History: Denies: Traveled Outside the [place] in Last 30 Days - Family History Known Family History: Negative: Hypertension, Diabetes - Social History Alcohol Use: None Hx Substance Use: Yes Substance Use Type: Reports: Marijuana Substance Use Comment - Amount & Last Used: not often, most recently Nov 2019 Hx Tobacco Use: No Smoking Status (MU): Never Smoked Tobacco Review of Systems - ROS Summary Review of Systems Summary: Home Medications Medication Instructions Recorded Confirmed Type Docusate CAP* [Colace Cap*] 100 mg PO BID #60 cap 01/16/20 01/17/20 Rx Senna TAB 8.6 mg* [Senokot 8.6 mg 2 tab PO BID PRN #30 tab 01/16/20 01/17/20 Rx TAB*] hydrOXYzine HCL TAB* [Atarax TAB 50 mg PO BEDTIME #30 tab 01/16/20 01/17/20 Rx 50 MG *] risperiDONE TAB* [Risperdal*] 3 mg PO BEDTIME #30 tab 01/16/20 01/17/20 Rx Negative: Fever Positive: Depressed, Other - NEG: SI All Other Systems Reviewed And Are Negative: Yes Physical Exam - Summary Physical Exam Summary: General: Well-developed, Well-nourished MALE. No acute distress. HEENT: Normocephalic, Atraumatic. Eyes: Conjuctiva normal, PERRL. Oropharynx: Clear, mucous membranes moist, (-) exudates. Neck: Soft, FROM, (-) lymphadenopathy, (-) thyromegaly, (-) JVD. Cardiovascular: Normal sinus rhythm, (-) murmur. Lungs: Clear to auscultation bilaterally (-) wheezes, (-) rales, (-) rhonchi. Abdomen: Soft, non-tender, non-distended, (-) organomegaly, normal bowel sounds. Back: (-) CVA tenderness Extremities: No edema. Skin: Warm, dry, (-) rash. Neuro: Alert and oriented x3, moves all extremities equally. No ataxia. No gait disturbance. No sensory deficit. Normal strength, normal sensation. Psychiatric: Patient is withdrawn and quiet. Sad affect Triage Information Reviewed: Yes Vital Signs On Initial Exam: Initial Vitals Temp Pulse Resp BP Pulse Ox 98.9 F 84 16 142/88 100 01/17/20 02:40 01/17/20 02:40 01/17/20 02:40 01/17/20 02:40 01/17/20 02:40 Vital Signs Reviewed: Yes Procedures - Sedation Patient Received Moderate/Deep Sedation with Procedure: No Diagnostics - Vital Signs Vital Signs Temp Pulse Resp BP Pulse Ox 01/17/20 02:40 98.9 F 84 16 142/88 100 - Laboratory Result Diagrams: 01/17/20 03:08 01/17/20 03:08 Lab Statement: Any lab studies that have been ordered have been reviewed, and results considered in the medical decision making process. Re-Evaluation - Re-Evaluation First Eval Re-Evaluation Time: 03:34 Comment: patient is medically cleared for MHE Course/Dx - Course Course Of Treatment: 19-year-old Burmanese male presents from home for depression. Patient states he does not feel well. He notes that he was discharged from the [facility] earlier today. he was in for about a week. Was started on Risperdal and then received a long-acting injection of Risperdal. prior To discharge. he states things became suddenly worse today when his mother came home. He is a very poor historian. Does not give a lot of detail but describes this as very stressful for him. Makes his mental illnesses worse. It is unclear exactly what his diagnoses are. According to his discharge he was admitted for psychotic episode and disorganized behavior. Patient is very cooperative. No significant findings on physical or laboratories. Patient is seen by mental health. It is recommended that he be held here until the psychiatrist can see him this morning.patient signed out at change of shift awaiting evaluation from psychiatrist. - Differential Dx/Clinical Impression Provider Diagnosis: Depression - Physician Notifications Time Discussed With Above Provider: 05:00 Instructed by Provider To: Other - Psychiatric transportation inspector reviewed case with Dr. Sharma. They recommend MH hold until patient can be seen by psychiatrist who treated patient at patient's most recent [facility] admission. Discharge ED - Sign-Out/Discharge Documenting (check all that apply): Sign-Out Patient Signing out patient TO: Marito Gamboa - Discharge Plan Referrals: Shai Toure MD [Primary Care Provider] - - Attestation Statements Document Initiated by Geraldineibe: Yes Documenting Scribe: Sierra Méndez Provider For Whom Vicki is Documenting (Include Credential): Joanne Clark MD Scribe Attestation: Sierra Perez, scribed for Joanne Clark MD on 01/17/20 at 0507. Scribe Documentation Reviewed: Yes Provider Attestation: The documentation as recorded by the Sierra lópez accurately reflects the service I personally performed and the decisions made by me, Joanne Clark MD Status of Scribe Document: Viewed
[2020-01-17 03:32] LABS: ALT 20 U/L (7-52); AST 26 U/L (13-39); Albumin 5.6 g/dL (3.2-5.2); Albumin/Globulin Ratio 2.2 (1-3); Alkaline Phosphatase 38 U/L (34-104); Anion Gap 8 mmol/L (2-11); BUN/Creatinine Ratio 16.5 (8-20); Blood Urea Nitrogen 15 mg/dL (6-24); CO2 Carbon Dioxide 26 mmol/L (22-32); Calcium 10.6 mg/dL (8.6-10.3); Chloride 103 mmol/L (101-111); EGFR African American 129.9 (>60); EGFR Non-African American 107.3 (>60); Globulin 2.5 g/dL (2-4); Glucose 91 mg/dL (70-100); Potassium 3.6 mmol/L (3.5-5.0); Sodium 137 mmol/L (135-145); Total Protein 8.1 g/dL (6.4-8.9)
[2020-01-17 04:06] LABS: Acetaminophen < 15 mcg/mL; Alcohol < 10 mg/dL (<10); Salicylate < 2.50 mg/dL (<30)
[2020-01-17 04:21] LABS: TSH (Thyroid Stimulating Horm) 8.68 mcIU/mL (0.34-5.60)
[2020-01-17 04:46] LABS: Urine Appearance Clear; Urine Bilirubin Negative (Negative); Urine Blood Negative (Negative); Urine Color Straw; Urine Glucose Negative (Negative); Urine Ketones Negative (Negative); Urine Nitrite Negative (Negative); Urine Protein Negative (Negative); Urine Specific Gravity 1.006 (1.010-1.030); Urine Urobilinogen Negative (Negative)
[2020-01-17 05:04] LABS: Urine Benzodiazepine Screen None Detected (None Detect); Urine Opiates Screen None Detected (None Detect)
--- NOTE | 2020-01-17 07:07 | ED ---
Progress - Progress Note Progress Note: Patient is a sign-out at 07:00 on 01/17/[address] Joanne Clark MD to Dr. Marito Gamboa MD at shift change, pending mental health hold and disposition. At 09:00, political geographer reports that the patient's case was reviewed by a provider under Dr. Rod Clayton who will discharge the patient with a diagnosis of psychosis. Patient will be discharged with a diagnosis of psychosis. - Results/Orders Results/Orders: Docusate CAP* [Colace Cap*] 100 mg PO BID #60 cap 01/16/20 [Rx Confirmed ] Senna TAB 8.6 mg* [Senokot 8.6 mg TAB*] 2 tab PO BID PRN #30 tab 01/16/20 [Rx Confirmed 01/17/20] hydrOXYzine HCL TAB* [Atarax TAB 50 MG *] 50 mg PO BEDTIME #30 tab 01/16/20 [Rx Confirmed 01/17/20] risperiDONE TAB* [Risperdal*] 3 mg PO BEDTIME #30 tab 01/16/20 [Rx Confirmed ] Re-Evaluation - Re-Evaluation First Eval Re-Evaluation Time: 03:34 Comment: patient is medically cleared for MHE Course/Dx - Diagnoses Provider Diagnoses: Depression, Psychosis - Provider Notifications Discussed Care Of Patient With: Rod Clayton - At 09:00, political geographer reports that the patient's case was reviewed by a provider under Dr. Rod Clayton who will discharge the patient with a diagnosis of psychosis. Time Discussed With Above Provider: 09:00 Instructed by Provider To: Other - Discharge Discharge ED - Sign-Out/Discharge Documenting (check all that apply): Patient Departure - Discharge, Receiving Sign-Out Receiving patient FROM: Joanne Clark - Patient is a sign-out at 07:[address] Joanne Clark MD to Dr. Marito Gamboa MD at shift change, pending mental health hold and disposition. - Discharge Plan Condition: Stable Disposition: HOME Referrals: Shai Toure MD [Primary Care Provider] - - Attestation Statements Document Initiated by Scribe: Yes Documenting Scribe: Megan Serrano Provider For Whom Scribe is Documenting (Include Credential): Marito Gamboa MD Scribe Attestation: IMegan, scribed for Marito Gamboa MD on 01/17/20 at 0915. Status of Scribe Document: Ready
[2020-01-17 09:32] VITALS: BP 146/83
== END 2020-01-17 09:27 | disposition home or self-care (01) ==
LOC: ED 02:36
DX: F32.9 Major depressive disorder, single episode, unspecified (principal); F29 Unspecified psychosis not due to a substance or known physiological condition; F20.9 Schizophrenia, unspecified; Z79.899 Other long term (current) drug therapy
CPT/HCPCS: 36415; 80053; 80307; 80320; 80329; 81003; 84443; 85025; 99285; G0480

== ENCOUNTER → 2020-01-18 00:24 | Emergency (ER) | payer OTHER ==
[~2020-01-18 00:24] MED LIST: hydrOXYzine HCL TAB* 25 MG PO ONE; risperiDONE TAB* 3 MG PO ONE
--- NOTE | 2020-01-18 00:47 | ED ---
Psychiatric Complaint - HPI Summary HPI Summary: This pt is a 19 Y/O M presenting to [facility] with a CC of hearing himself talking in his head. He states that he is unable to sleep or stay still in bed. He has recently started taking Risperdal. He states that his thoughts are very quick and jump around from topic to topic. He states that he hears himself talking in his head without any end. He denies hearing any auditory hallucinations, vomiting, nausea, headaches, HI, SI, and fevers. Medications reviewed. Allergies noted. He denies any alcohol use, drug use, or cigarette use. He states that he is currently living at [place] [id number] and is currently out of a job and not in school. He states that he believes he has schizophrenia due to a trauma he experienced with his family. Home Medications Medication Instructions Recorded Confirmed Type Docusate CAP* [Colace Cap*] 100 mg PO BID #60 cap 01/16/20 01/17/20 Rx Senna TAB 8.6 mg* [Senokot 8.6 mg 2 tab PO BID PRN #30 tab 01/16/20 01/17/20 Rx TAB*] hydrOXYzine HCL TAB* [Atarax TAB 50 mg PO BEDTIME #30 tab 01/16/20 01/17/20 Rx 50 MG *] risperiDONE TAB* [Risperdal*] 3 mg PO BEDTIME #30 tab 01/16/20 01/17/20 Rx - History Of Current Complaint Chief Complaint: EDMentalHealth Time Seen by Provider: 01/18/20 00:26 Accompanied By: no one Hx Obtained From: Patient Onset/Duration: Still Present Timing: Constant Severity Initially: Moderate Severity Currently: Moderate Aggravating Factor(s): Nothing Alleviating Factor(s): Nothing Associated Signs And Symptoms: Positive: Sleep Disturbance Related History: Positive For: Prior Psychiatric Issues Has Suicidal: Denies: Thoughts, With A Plan Has Homicidal: Denies: Thoughts, With A Plan - Allergies/Home Medications Allergies/Adverse Reactions: Allergies Allergy/AdvReac Type Severity Reaction Status Date / Time No Known Allergies Allergy Verified 01/17/20 03:12 Home Medications: Home Medications Docusate CAP* [Colace Cap*] 100 mg PO BID #60 cap 01/16/20 [Rx Confirmed ] Senna TAB 8.6 mg* [Senokot 8.6 mg TAB*] 2 tab PO BID PRN #30 tab 01/16/20 [Rx Confirmed 01/17/20] hydrOXYzine HCL TAB* [Atarax TAB 50 MG *] 50 mg PO BEDTIME #30 tab 01/16/20 [Rx Confirmed 01/17/20] risperiDONE TAB* [Risperdal*] 3 mg PO BEDTIME #30 tab 01/16/20 [Rx Confirmed ] PMH/Surg Hx/FS Hx/Imm Hx Previously Healthy: Yes Endocrine/Hematology History: Denies: Hx Diabetes Cardiovascular History: Denies: Hx Hypertension Musculoskeletal History: Denies: Hx Rheumatoid Arthritis, Hx Osteoporosis Sensory History: Denies: Hx Contacts or Glasses, Hx Legally Blind, Hx Deafness, Hx Hearing Aid Opthamlomology History: Denies: Hx Contacts or Glasses, Hx Legally Blind Psychiatric History: Reports: Hx Attention Deficit Hyperactivity Disorder, Hx Depression, Hx Schizophrenia Denies: Hx Eating Disorder, Hx Post Traumatic Stress Disorder, Hx Bipolar Disorder, Hx Suicide Attempt - Cancer History Hx Chemotherapy: No Hx Radiation Therapy: No - Surgical History Surgical History: None Surgery Procedure, Year, and Place: Denies - Immunization History Immunizations Up to Date: Yes Infectious Disease History: No Infectious Disease History: Denies: Traveled Outside the US in Last 30 Days - Family History Known Family History: Negative: Hypertension, Diabetes - Social History Occupation: Unemployed Lives: Alone Alcohol Use: None Alcohol Amount: "It depends" Hx Substance Use: No Substance Use Type: Reports: None Substance Use Comment - Amount & Last Used: not often, most recently Nov 2019 Hx Tobacco Use: No Smoking Status (MU): Never Smoked Tobacco Review of Systems Negative: Fever Negative: Vomiting, Nausea Negative: Headache Psychological: Other - NEGATIVE: HI, SI, auditory hallucinations All Other Systems Reviewed And Are Negative: Yes Physical Exam - Summary Physical Exam Summary: Constitutional: Well-developed, Well-nourished, Alert. (-) Distressed Skin: Warm, Dry HENT: Normocephalic; Atraumatic Eyes: Conjunctiva normal Neck: Musculoskeletal ROM normal neck. (-) JVD, (-) Stridor, (-) Tracheal deviation Cardio: Rhythm regular, rate normal, Heart sounds normal; Intact distal pulses; Radial pulses are 2+ and symmetric. (-) Murmur Pulmonary/Chest wall: Effort normal. (-) Respiratory distress, (-) Wheezes, (-) Rales Abd: Soft, (-) tenderness, (-) Distension, (-) Guarding, (-) Rebound Musculoskeletal: (-) Edema Lymph: (-) Cervical adenopathy Neuro: Alert, Oriented x3 Psych: Mood normal, flat affect Triage Information Reviewed: Yes Vital Signs On Initial Exam: Initial Vitals Temp Pulse Resp BP Pulse Ox 97.2 F 78 18 147/92 98 01/18/20 00:27 01/18/20 00:27 01/18/20 00:27 01/18/20 00:27 01/18/20 00:27 Vital Signs Reviewed: Yes Procedures - Sedation Patient Received Moderate/Deep Sedation with Procedure: No Diagnostics - Vital Signs Vital Signs Temp Pulse Resp BP Pulse Ox 01/18/20 00:27 97.2 F 78 18 147/92 98 - Laboratory Lab Statement: Any lab studies that have been ordered have been reviewed, and results considered in the medical decision making process. Course/Dx - Course Course Of Treatment: Patient is here with mental health issues. Patient was medically cleared by myself. Patient was signed out to Dr. Wilkinson is pending disposition by mental health team - Differential Dx/Clinical Impression Provider Diagnosis: Psychotic disorder Discharge ED - Sign-Out/Discharge Documenting (check all that apply): Sign-Out Patient Signing out patient TO: Beatrice Elias - Discharge Plan Condition: Stable Disposition: HOME Referrals: Shai Toure MD [Primary Care Provider] [facility], APPLICATION, OTHER] - (You have an intake appointment scheduled on January 22 at 10:00 am with Charlene Rodriguez. ) - Billing Disposition and Condition Condition: STABLE Disposition: Home - Attestation Statements Document Initiated by Scribe: Yes Documenting Scribe: Chang Flores Provider For Whom Scribe is Documenting (Include Credential): Jose Andres MD Scribe Attestation: Chang Perez, scribed for Jose Andres MD on 01/19/20 at 0730. Scribe Documentation Reviewed: Yes Provider Attestation: The documentation as recorded by the scribeChang accurately reflects the service I personally performed and the decisions made by me, Jose Andres MD Status of Scribe Document: Viewed
[2020-01-18 02:48] LABS: Urine Benzodiazepine Screen None Detected (None Detect); Urine Opiates Screen None Detected (None Detect)
--- NOTE | 2020-01-18 02:56 | ED ---
Progress - Progress Note Progress Note: This pt is a sign out to Dr. Jada MD from Dr. Dmitry MD at 0200 01/18/2020 pending MHE and dispo. Course/Dx - Course Course Of Treatment: This pt is a sign out to Dr. Jada MD from Dr. Dmitry MD at 0200 01/18/2020 pending MHE and dispo. Dr. Hernández, psychiatrist, stated that the pt will be placed on a MHU Hold until the morning when Dr. Clayton will review the pt's case and provide a MHE. This pt will be signed out to Dr. Tobar from Dr. Elias pending a MHE from Dr. Clayton and disposition. - Diagnoses Provider Diagnoses: Psychotic disorder - Provider Notifications Discussed Care Of Patient With: Gil Hernández Time Discussed With Above Provider: 02:49 Instructed by Provider To: Have Pt Call For Appt. - Dr. Hernández, psychiatrist, stated that the pt will be placed on a MHU Hold until the morning when Dr. Clayton will review the pt's case and provide a MHE. Discharge ED - Sign-Out/Discharge Documenting (check all that apply): Sign-Out Patient, Receiving Sign-Out Signing out patient TO: Lang Tobar Receiving patient FROM: Jose Andres - Discharge Plan Condition: Stable Referrals: Shai Toure MD [Primary Care Provider] - - Billing Disposition and Condition Condition: STABLE - Attestation Statements Document Initiated by Scribe: Yes Documenting Scribe: Chang Flores Provider For Whom Vicki is Documenting (Include Credential): Beatrice Dickens MD Scribe Attestation: Chang Perez, scribed for Beatrice Elias MD on 01/18/20 at 0744. Scribe Documentation Reviewed: Yes Provider Attestation: The documentation as recorded by the Chang lópez accurately reflects the service I personally performed and the decisions made by me, Beatrice Elias MD Status of Scribe Document: Viewed
--- NOTE | 2020-01-18 07:05 | ED ---
Progress - Progress Note Progress Note: The patient is a sign-out from Dr. Beatrice Elias MD, to Dr. Manuel Tobar DO, at change of shift at 0700 on 01/18/2020, pending psychiatric evaluation and disposition. Dr. Clayton and mental health team have evaluated the patient's case and determined that he is safe for discharge at this time, diagnosis of unspecified psychotic disorder. Course/Dx - Course Course Of Treatment: The patient is a sign-out from Dr. Beatrice Dickens MD, to Dr. Manuel Tobar DO, at change of shift at 0700 on , pending psychiatric evaluation and disposition. Dr. Clayton and mental health team have evaluated the patient's case and determined that he is safe for discharge at this time, diagnosis of unspecified psychotic disorder. - Diagnoses Provider Diagnoses: Psychotic disorder - Provider Notifications Discussed Care Of Patient With: Rod Clayton - psychiatry Time Discussed With Above Provider: 08:55 Instructed by Provider To: Other - Dr. Clayton and psych team have cleared patient for d/c with outpatient f/u as needed Discharge ED - Sign-Out/Discharge Documenting (check all that apply): Patient Departure - Patient will be discharged home by [facility] staff., Receiving Sign-Out Receiving patient FROM: Beatrice Elias - Patient is a sign-out from Dr. Beatrice Elias MD at 0700 on 01/18/2020, pending MHE and disposition. - Discharge Plan Condition: Stable Disposition: HOME Referrals: Shai Toure MD [Primary Care Provider] - [facility] [[employer], APPLICATION, OTHER] - (You have an intake appointment scheduled on January 22 at 10:00 am with Charlene Rodriguez. ) - Billing Disposition and Condition Condition: STABLE Disposition: Home - Attestation Statements Document Initiated by Scribe: Yes Documenting Scribe: Adry Abdul Provider For Whom Scribe is Documenting (Include Credential): Dr. Manuel Tobar DO Scribe Attestation: Adry Perez, scribed for Dr. Manuel Tobar DO on 01/18/20 at 1304. Scribe Documentation Reviewed: Yes Provider Attestation: The documentation as recorded by the elyssaibeAdry accurately reflects the service I personally performed and the decisions made by me, Dr. Manuel Tobar, DO Status of Scribe Document: Viewed Procedures - Sedation Patient Received Moderate/Deep Sedation with Procedure: No
[2020-01-18 09:26] VITALS: BP 117/73
== END | disposition home or self-care (01) ==
LOC: ED 00:24
DX: F23 Brief psychotic disorder (principal)
CPT/HCPCS: 80307; 99284; A9270-GY; G0480

== ENCOUNTER 2020-01-24 00:59 | Emergency (ER) | payer OTHER ==
[2020-01-24] MEDS ORDERED: hydrOXYzine HCL TAB* 50 MG PO ONE (01:35)
--- NOTE | 2020-01-24 01:36 | ED ---
Complex/Multi-Sys Presentation - HPI Summary HPI Summary: Patient complains of restlessness, insomnia, intermittent itching all over 2 days. Patient started on Risperdal 4 days ago. Patient has taken before during admission to [facility]. Patient prescribed Risperdal by Dr. Randolph at [facility]. Patient denies any mental health issues at this time, HR, SI, hallucinations. Denies any other symptoms, pain or injury. - History Of Current Complaint Chief Complaint: EDGeneral Time Seen by Provider: 01/24/20 01:13 Hx Obtained From: Patient Onset/Duration: Gradual Onset, Lasting Days Timing: Intermittent, Lasting: Severity Currently: Moderate Severity Initially: Mild - Allergies/Home Medications Allergies/Adverse Reactions: Allergies Allergy/AdvReac Type Severity Reaction Status Date / Time No Known Allergies Allergy Verified 01/24/20 10:00 Home Medications: Home Medications Docusate CAP* [Colace Cap*] 100 mg PO BID #60 cap 01/16/20 [Rx Confirmed ] Senna TAB 8.6 mg* [Senokot 8.6 mg TAB*] 2 tab PO BID PRN #30 tab 01/16/20 [Rx Confirmed 01/24/20] hydrOXYzine HCL TAB* [Atarax TAB 50 MG *] 50 mg PO BEDTIME #30 tab 01/16/20 [Rx Confirmed 01/24/20] risperiDONE TAB* [Risperdal*] 3 mg PO BEDTIME #30 tab 01/16/20 [Rx Confirmed ] Polyethylene Glycol 3350* [Miralax (17 GM DOSE SUNG)] 17 gm PO DAILY #14 packet 01/24/20 [Rx] PMH/Surg Hx/FS Hx/Imm Hx Endocrine/Hematology History: Denies: Hx Diabetes Cardiovascular History: Denies: Hx Hypertension History: Denies: Hx Dialysis Musculoskeletal History: Denies: Hx Rheumatoid Arthritis, Hx Osteoporosis Sensory History: Denies: Hx Contacts or Glasses, Hx Legally Blind, Hx Deafness, Hx Hearing Aid Opthamlomology History: Denies: Hx Contacts or Glasses, Hx Legally Blind EENT History: Denies: Hx Deafness Neurological History: Denies: Hx Dementia Psychiatric History: Reports: Hx Attention Deficit Hyperactivity Disorder, Hx Depression, Hx Schizophrenia Denies: Hx Eating Disorder, Hx Post Traumatic Stress Disorder, Hx Bipolar Disorder, Hx Suicide Attempt - Cancer History Hx Chemotherapy: No Hx Radiation Therapy: No - Surgical History Surgery Procedure, Year, and Place: Denies Infectious Disease History: No Infectious Disease History: Denies: Traveled Outside the US in Last 30 Days - Family History Known Family History: Negative: Hypertension, Diabetes - Social History Alcohol Use: None Alcohol Amount: "It depends" Hx Substance Use: No Substance Use Type: Reports: None Substance Use Comment - Amount & Last Used: not often, most recently Nov 2019 Hx Tobacco Use: No Smoking Status (MU): Never Smoked Tobacco Review of Systems Constitutional: Negative Eyes: Negative ENT: Negative Cardiovascular: Negative Respiratory: Negative Gastrointestinal: Negative Genitourinary: Negative Musculoskeletal: Negative Skin: Other Neurological/Mental Status: Negative Psychological: Normal All Other Systems Reviewed And Are Negative: Yes Physical Exam - Summary Physical Exam Summary: No rash noted. ENT exam normal. Lung sounds clear to auscultation bilaterally. Patient anxious but cooperative and coherent. No tremors noted. Triage Information Reviewed: Yes Vital Signs On Initial Exam: Initial Vitals Temp Pulse Resp BP Pulse Ox 97 F 75 16 112/83 98 01/24/20 01:01 01/24/20 01:01 01/24/20 01:01 01/24/20 01:01 01/24/20 01:01 Vital Signs Reviewed: Yes Appearance: Positive: Well-Appearing Skin: Positive: Warm Head/Face: Positive: Normal Head/Face Inspection Eyes: Positive: Normal ENT: Positive: Normal ENT inspection Neck: Positive: Supple Respiratory/Lung Sounds: Positive: Clear to Auscultation Cardiovascular: Positive: Normal Abdomen Description: Positive: Nontender Musculoskeletal: Positive: Normal Neurological: Positive: Normal Psychiatric: Positive: Normal AVPU Assessment: Alert - Melanie Coma Scale Best Eye Response: 4 - Spontaneous Best Motor Response: 6 - Obeys Commands Best Verbal Response: 5 - Oriented Coma Scale Total: 15 Procedures - Sedation Patient Received Moderate/Deep Sedation with Procedure: No Diagnostics - Vital Signs Vital Signs Temp Pulse Resp BP Pulse Ox 01/24/20 01:01 97 F 75 16 112/83 98 - Laboratory Lab Statement: Any lab studies that have been ordered have been reviewed, and results considered in the medical decision making process. Complex Multi-Symp Course/Dx Course Of Treatment: Patient complains of restlessness, insomnia, intermittent itching all over 2 days. Patient started on Risperdal 4 days ago. Patient has taken before during admission to [facility]. Patient prescribed Risperdal by Dr. Randolph at [facility]. Patient denies any mental health issues at this time, HR, SI, hallucinations. Denies any other symptoms, pain or injury. Vital signs within normal limits. Physical exam unremarkable. Patient also taking hydroxyzine in the a.m. Advised to take hydroxyzine before bed as well. Follow-up with [facility] tomorrow regarding Risperdal. - Diagnoses Provider Diagnoses: Medication reaction Discharge ED - Sign-Out/Discharge Documenting (check all that apply): Patient Departure - Discharge Plan Condition: Stable Disposition: HOME Referrals: Shai Toure MD [Primary Care Provider] - Additional Instructions: Take hydroxyzine 50 mg when you get home tonight. Take as usual in the morning. Call your therapist Dr. Miller at [facility] tomorrow to let her know the symptoms you're having. Return to the ED for any new or worsening symptoms. - Billing Disposition and Condition Condition: STABLE Disposition: Home
[2020-01-24 03:18] VITALS: BP 127/72
== END 2020-01-24 02:25 | disposition home or self-care (01) ==
LOC: ED 00:59
DX: T43.595A Adverse effect of other antipsychotics and neuroleptics, initial encounter (principal); Y92.9 Unspecified place or not applicable; F90.9 Attention-deficit hyperactivity disorder, unspecified type; F32.9 Major depressive disorder, single episode, unspecified; F20.9 Schizophrenia, unspecified; Z79.899 Other long term (current) drug therapy
CPT/HCPCS: 99282; A9270-GY

== ENCOUNTER 2020-01-24 09:02 | Emergency (ER) | payer OTHER ==
--- NOTE | 2020-01-24 09:59 | ED ---
Psychiatric Complaint - HPI Summary HPI Summary: 19 year old male presents with concerns about his medication and wanting to get a therapist appointment. after he was admitted here two weeks ago he states that he was told he was suppose to be followed up with Tomasa who does not work there. Was initially prescribed medications by [facility] when he was [facility] a couple weeks ago. He states that he had a follow-up this week but he missed his appointment was rescheduled for 2 weeks. He states he was placed on hydroxyzine which he states has been helping. He states that he is constipation. Has been taking the Colace with minimal relief. He denies any abdominal pain currently. he denies any suicidal or homicidal thoughts. - History Of Current Complaint Chief Complaint: EDGeneral Time Seen by Provider: 01/24/20 09:20 - Allergies/Home Medications Allergies/Adverse Reactions: Allergies Allergy/AdvReac Type Severity Reaction Status Date / Time No Known Allergies Allergy Verified 01/24/20 10:00 Home Medications: Home Medications Docusate CAP* [Colace Cap*] 100 mg PO BID #60 cap 01/16/20 [Rx Confirmed ] Senna TAB 8.6 mg* [Senokot 8.6 mg TAB*] 2 tab PO BID PRN #30 tab 01/16/20 [Rx Confirmed 01/24/20] hydrOXYzine HCL TAB* [Atarax TAB 50 MG *] 50 mg PO BEDTIME #30 tab 01/16/20 [Rx Confirmed 01/24/20] risperiDONE TAB* [Risperdal*] 3 mg PO BEDTIME #30 tab 01/16/20 [Rx Confirmed ] Polyethylene Glycol 3350* [Miralax (17 GM DOSE SUNG)] 17 gm PO DAILY #14 packet 01/24/20 [Rx] PMH/Surg Hx/FS Hx/Imm Hx Endocrine/Hematology History: Denies: Hx Diabetes Cardiovascular History: Denies: Hx Hypertension Musculoskeletal History: Denies: Hx Rheumatoid Arthritis, Hx Osteoporosis Sensory History: Denies: Hx Contacts or Glasses, Hx Legally Blind, Hx Deafness, Hx Hearing Aid Opthamlomology History: Denies: Hx Contacts or Glasses, Hx Legally Blind Psychiatric History: Reports: Hx Attention Deficit Hyperactivity Disorder, Hx Depression, Hx Schizophrenia Denies: Hx Eating Disorder, Hx Post Traumatic Stress Disorder, Hx Bipolar Disorder, Hx Suicide Attempt - Cancer History Hx Chemotherapy: No Hx Radiation Therapy: No - Surgical History Surgery Procedure, Year, and Place: Denies Infectious Disease History: No Infectious Disease History: Denies: Traveled Outside the [place] in Last 30 Days - Family History Known Family History: Negative: Hypertension, Diabetes - Social History Alcohol Use: None Alcohol Amount: "It depends" Hx Substance Use: No Substance Use Type: Reports: None Substance Use Comment - Amount & Last Used: not often, most recently Nov 2019 Hx Tobacco Use: No Smoking Status (MU): Never Smoked Tobacco Review of Systems Negative: Fever Negative: Chest Pain Negative: Shortness Of Breath Positive: Other - constipation. Negative: Abdominal Pain All Other Systems Reviewed And Are Negative: Yes Physical Exam Triage Information Reviewed: Yes Vital Signs On Initial Exam: Initial Vitals Temp Pulse Resp BP Pulse Ox 98.0 F 99 16 126/62 97 01/24/20 09:05 01/24/20 09:05 01/24/20 09:05 01/24/20 09:05 01/24/20 09:05 Vital Signs Reviewed: Yes Appearance: Positive: Well-Appearing Skin: Positive: Warm, Dry Head/Face: Positive: Normal Head/Face Inspection Eyes: Positive: Normal, Conjunctiva Clear ENT: Positive: Pharynx normal Respiratory/Lung Sounds: Positive: Clear to Auscultation, Breath Sounds Present Cardiovascular: Positive: Normal, RRR Abdomen Description: Positive: Nontender, Soft Bowel Sounds: Positive: Present Musculoskeletal: Positive: Normal Neurological: Positive: Normal Psychiatric: Positive: Normal Procedures - Sedation Patient Received Moderate/Deep Sedation with Procedure: No Diagnostics - Vital Signs Vital Signs Temp Pulse Resp BP Pulse Ox 01/24/20 09:05 98.0 F 99 16 126/62 97 - Laboratory Lab Statement: Any lab studies that have been ordered have been reviewed, and results considered in the medical decision making process. Course/Dx - Course Course Of Treatment: 19 year old male presents with concerns about his medication and wanting to get a therapist appointment. after he was admitted here two weeks ago he states that he was told he was suppose to be followed up with [facility] who does not work there. Was initially prescribed medications by [facility] when he was admitted to [facility] a couple weeks ago. He states that he had a follow-up this week but he missed his appointment was rescheduled for 2 weeks. He states he was placed on hydroxyzine which he states has been helping. He states that he is constipation. Has been taking the Colace with minimal relief. He denies any abdominal pain currently. he denies any suicidal or homicidal thoughts. On exam has a normal physical exam. gave MiraLAX for constipation. Discuss with patient that [facility] currently has open hours and should go immediately there for further discussion with a therapist. Patient understands and agrees with plan. - Differential Dx/Clinical Impression Differential Diagnosis/HQI/PQRI: Positive: Anxiety, Depression, Other - constipation Provider Diagnosis: Constipation, Encounter for medical screening examination Discharge ED - Sign-Out/Discharge Documenting (check all that apply): Patient Departure - Discharge Plan Condition: Good Disposition: HOME Prescriptions: Polyethylene Glycol 3350* [Miralax (17 GM DOSE SUNG)] 17 gm PO DAILY #14 packet Referrals: Shai Toure MD [Primary Care Provider] - [facility] [[employer], APPLICATION, OTHER] - Additional Instructions: follow up with [facility] today, go directly there add on miralax one packet in 8ounce of liquid Return to ED if develop any new or worsening symptoms - Billing Disposition and Condition Condition: GOOD Disposition: Home
[2020-01-24 10:10] VITALS: BP 123/64
== END 2020-01-24 10:09 | disposition home or self-care (01) ==
LOC: ED 09:02
DX: K59.00 Constipation, unspecified (principal); F90.9 Attention-deficit hyperactivity disorder, unspecified type; F20.9 Schizophrenia, unspecified; F32.9 Major depressive disorder, single episode, unspecified; Z79.899 Other long term (current) drug therapy
CPT/HCPCS: 99281

== ENCOUNTER 2020-03-12 21:08 | Inpatient (IN) | payer OTHER ==
--- NOTE | 2020-03-12 21:29 | ED ---
Psychiatric Complaint - HPI Summary HPI Summary: 19-year-old male with a significant past medical history of psychiatric issues who goes by the name of Golden presents to the emergency department today with chief complaint of "I've been feeling really down lately." Patient currently denies suicidal ideation or homicidal ideation. Patient states he cannot focus due to his symptoms. Patient has not made any gestures of self-harm. Patient states prior to arrival he used marijuana and nicotine but denies alcohol use. Patient denies any physical pain at this time including fever, chest pain, abdominal pain, rash, shortness of breath, nausea, vomiting, diarrhea, pain with urination. - History Of Current Complaint Chief Complaint: EDMentalHealth Time Seen by Provider: 03/12/20 21:20 Hx Obtained From: Patient Onset/Duration: Gradual Onset Character: Depressed Related History: Positive For: Prior Psychiatric Issues Has Suicidal: Denies: Thoughts, Demonstrates Gesture Has Homicidal: Denies: Thoughts - Allergies/Home Medications Allergies/Adverse Reactions: Allergies Allergy/AdvReac Type Severity Reaction Status Date / Time No Known Allergies Allergy Verified 03/12/20 21:19 Home Medications: Home Medications Docusate CAP* [Colace Cap*] 100 mg PO BID PRN 03/12/20 [History Confirmed ] hydrOXYzine HCL TAB* [Atarax TAB 50 MG *] 50 mg PO BEDTIME PRN 03/12/20 [ History Confirmed 03/12/20] risperiDONE [Risperidone] 3 mg PO BEDTIME 03/12/20 [History Confirmed 03/12/20] PMH/Surg Hx/FS Hx/Imm Hx Endocrine/Hematology History: Denies: Hx Diabetes Cardiovascular History: Denies: Hx Hypertension Musculoskeletal History: Denies: Hx Rheumatoid Arthritis, Hx Osteoporosis Sensory History: Denies: Hx Contacts or Glasses, Hx Legally Blind, Hx Deafness, Hx Hearing Aid Opthamlomology History: Denies: Hx Contacts or Glasses, Hx Legally Blind Psychiatric History: Reports: Hx Attention Deficit Hyperactivity Disorder, Hx Depression, Hx Schizophrenia Denies: Hx Eating Disorder, Hx Post Traumatic Stress Disorder, Hx Bipolar Disorder, Hx Suicide Attempt - Cancer History Hx Chemotherapy: No Hx Radiation Therapy: No - Surgical History Surgery Procedure, Year, and Place: Denies Infectious Disease History: No Infectious Disease History: Denies: Traveled Outside the [place] in Last 30 Days - Family History Known Family History: Negative: Hypertension, Diabetes - Social History Alcohol Use: None Alcohol Amount: "It depends" Hx Substance Use: No Substance Use Type: Reports: None Substance Use Comment - Amount & Last Used: not often, most recently Nov 2019 Hx Tobacco Use: No Smoking Status (MU): Never Smoked Tobacco Review of Systems Constitutional: Negative Eyes: Negative ENT: Negative Cardiovascular: Negative Respiratory: Negative Gastrointestinal: Negative Genitourinary: Negative Musculoskeletal: Negative Skin: Negative Neurological/Mental Status: Negative Positive: Depressed. Negative: Anxious All Other Systems Reviewed And Are Negative: Yes Physical Exam - Summary Physical Exam Summary: Patient makes poor eye contact and conversation. Patient has a flat affect. Patient's thought process is organized. Triage Information Reviewed: Yes Vital Signs On Initial Exam: Initial Vitals Temp Pulse Resp BP Pulse Ox 97.3 F 62 16 140/85 98 03/12/20 21:15 03/12/20 21:15 03/12/20 21:15 03/12/20 21:15 03/12/20 21:15 Vital Signs Reviewed: Yes Appearance: Positive: Well-Appearing, No Pain Distress, Well-Nourished Skin: Positive: Warm, Skin Color Reflects Adequate Perfusion Eyes: Positive: EOMI, NAVEEN ENT: Positive: Hearing grossly normal Respiratory/Lung Sounds: Positive: Clear to Auscultation, Breath Sounds Present Cardiovascular: Positive: RRR, S1, S2 Abdomen Description: Positive: Nontender, Soft Bowel Sounds: Positive: Present Musculoskeletal: Positive: Strength/ROM Intact Neurological: Positive: Sensory/Motor Intact, Alert, Oriented to Person Place, Time, Normal Gait, Facial Symmetry, Speech Normal Psychiatric: Positive: Depressed. Negative: Anxious AVPU Assessment: Alert Procedures - Sedation Patient Received Moderate/Deep Sedation with Procedure: No Diagnostics - Vital Signs Vital Signs Temp Pulse Resp BP Pulse Ox 03/12/20 21:15 97.3 F 62 16 140/85 98 - Laboratory Result Diagrams: 03/12/20 21:56 03/12/20 21:56 Lab Statement: Any lab studies that have been ordered have been reviewed, and results considered in the medical decision making process. Course/Dx - Course Course Of Treatment: Patient was evaluated in the emergency department today for mood disorder. Patient was seen and examined. Vitals noted. Patient was placed in a safe round and under observation. Patient belongings were collected and laboratory studies and urinalysis including toxicology was obtained. Laboratory studies returned showing no significant findings. Serum alcohol 0. Urinalysis returned showing no evidence of pathology or UTI. Urine tox screen positive for cannabinoids, otherwise unremarkable. Patient was medically cleared for mental health evaluation and disposition by psychiatric services. Psychiatrist, Dr. Sharma believes the patient would be best with inpatient therapy. Patient admitted to [facility] psychiatric unit with a diagnosis of psychosis. - Differential Dx/Clinical Impression Differential Diagnosis/HQI/PQRI: Positive: Acute Psychosis, Depression, Schizophrenia, Suicidal Ideation Provider Diagnosis: Psychosis - Critical Care Time Critical Care Statement: Critical care time is provided exclusive of any time spent performing procedures. Discharge ED - Sign-Out/Discharge Documenting (check all that apply): Patient Departure - Discharge Plan Condition: Stable [place] [place]: Shai Toure MD [Primary Care Provider] - - Billing Disposition and Condition Condition: STABLE Disposition: [place]iatric [place] [facility] [place]
[2020-03-12 22:10] LABS: ABS Basophils 0.1 10^3/ul (0-0.2); ABS Eosinophils 0.2 10^3/ul (0-0.6); ABS Lymphocytes 2.9 10^3/ul (1.0-4.8); ABS Monocytes 0.4 10^3/ul (0-0.8); ABS Neutrophils 3.5 10^3/ul (1.5-7.7); Eosinophil % 2.7 %; Hematocrit 42 % (42-52); Hemoglobin 14.8 g/dL (14.0-18.0); Lymphocyte % 41.1 %; Mean Corpuscular HGB Conc 35 g/dL (31-36); Mean Corpuscular Hemoglobin 33 pg (27-31); Mean Corpuscular Volume 94 fL (80-94); Mean Platelet Volume 9.2 fL (7.4-10.4); Nucleated Red Blood Cells % 0.1; Platelet Count 262 10^3/uL (150-450); Red Cell Distribution Width 12 % (10-15); White Blood Count 6.9 10^3/uL (3.5-10.8)
[2020-03-12 22:27] LABS: ALT 41 U/L (7-52); AST 14 U/L (13-39); Albumin 4.8 g/dL (3.2-5.2); Albumin/Globulin Ratio 1.8 (1-3); Alkaline Phosphatase 42 U/L (34-104); Anion Gap 10 mmol/L (2-11); BUN/Creatinine Ratio 17.8 (8-20); Blood Urea Nitrogen 16 mg/dL (6-24); CO2 Carbon Dioxide 21 mmol/L (22-32); Calcium 10.1 mg/dL (8.6-10.3); Chloride 107 mmol/L (101-111); EGFR African American 131.5 (>60); EGFR Non-African American 108.7 (>60); Globulin 2.6 g/dL (2-4); Glucose 94 mg/dL (70-100); Potassium 3.5 mmol/L (3.5-5.0); Sodium 138 mmol/L (135-145); Total Protein 7.4 g/dL (6.4-8.9)
[2020-03-12 22:33] LABS: Acetaminophen < 15 mcg/mL; Alcohol < 10 mg/dL (<10); Salicylate < 2.50 mg/dL (<30)
[2020-03-12 22:48] LABS: TSH (Thyroid Stimulating Horm) 4.52 mcIU/mL (0.34-5.60)
[2020-03-12 23:25] LABS: Urine Appearance Clear; Urine Bilirubin Negative (Negative); Urine Blood Negative (Negative); Urine Color Yellow; Urine Glucose Negative (Negative); Urine Ketones Negative (Negative); Urine Nitrite Negative (Negative); Urine Protein Negative (Negative); Urine Specific Gravity 1.014 (1.010-1.030); Urine Urobilinogen Negative (Negative)
[2020-03-12 23:56] LABS: Urine Benzodiazepine Screen None Detected (None Detect); Urine Opiates Screen None Detected (None Detect)
[2020-03-13] MEDS ORDERED: hydrOXYzine HCL TAB* 50 MG ONE (00:46)
[2020-03-13] MEDS ORDERED: hydrOXYzine HCL TAB* 50 MG PO PRN (02:28)
[2020-03-13] MEDS ORDERED: Docusate CAP* 100 MG PO PRN (02:28)
[2020-03-13] MEDS ORDERED: Acetaminophen TAB* 325 MG PO PRN (02:30)
[2020-03-13] MEDS ORDERED: Al Hydrox/Mg Hydrox/Simet LIQ* 30 ML UDC PO PRN (02:30)
[2020-03-13] MEDS: Vitamin THERAPEUTIC TAB PO SCH (09:36)
--- NOTE | 2020-03-13 11:57 | PN ---
[facility]: Group Therapy Note - Service Type Service Type: 81967 Group Psychotherapy - Cognitive Behavioral Group Therapy ( CBT):Patient attended CBT programming this morning and presented with flat affect that did not vary with discussion. Although responsive to direct prompts to respond to questions, patient did not engage in spontaneous conversation.
[2020-03-13] MEDS ORDERED: Nicotine* 2MG (FRUIT FLAVOR) GUM PO PRN (14:07)
--- NOTE | 2020-03-13 16:14 | HP ---
HISTORY AND PHYSICAL: DATE OF ADMISSION: 03/13/20 PROVIDER: Tomasa Segura NP in Psychiatry. SUPERVISING PHYSICIAN: Rod Clayton MD* (dictated by Tomaas Segura NP in Psychiatry). JUSTIFICATION FOR ADMISSION: The patient is in need of 24-hour supervision and care secondary to gross disorganization. CHIEF COMPLAINT: "I guess I'm not a big fan of the DARE program". HISTORY OF PRESENT ILLNESS: The patient is a 19-year-old single [place]ian male with a history of psychosis and reported depression, who arrives brought in by himself and is here on a voluntary status after feeling as though he was having seizure symptoms in which he stated he started overthinking and then shaking uncontrollably. He denies being anxious, but he does bounce his legs, flick his fingers, and rub his face frequently during the interview. Donavon goes by "Golden". Golden stopped medications. He stated at one time that Risperdal felt terrible. He stated he got night sweats and he was dizzy when he slept and he woke up nauseated and dizzy. He has reported himself to be depressed. He states that yesterday and today he was experiencing suicidal ideation. Later in the conversation, however, he denies being depressed and he continues to deny being anxious. Golden states that he cannot focus and that is truly his chief complaint. As with the last time he was admitted, he is seeking Adderall. Additionally, he is seeking benzodiazepines. He states he needs these because he has trouble sleeping. He does say that he sleeps 4 to 5 hours per night and that one time after his discharge from the hospital, he used hydroxyzine 50 mg to help achieve better sleep. He also requested Percocet for pain. When asked where his pain was, he said it is all over and then retreated and said he does not really think that Percocet has ever helped at all. When I confronted him about his desire to have Adderall, benzodiazepines, and Percocet and I threw in other words like Vicodin and ibuprofen, he did not recognize any words other than those that he had already mentioned. That is the point where he said, "I am not a big fan of the DARE program." He states that he has been using cannabis and he does use a Juul. He does request nicotine replacement therapy while in the hospital. He is disorganized. His speech derails from time to time. He does not seem to have insight into the questions we are asking or the purpose of those questions. He states that he would like to be discharged now and he declines to try Risperdal again. He declines Invega. He declines Abilify. He states he feels better now. PAST PSYCHIATRIC HISTORY: He has been admitted to the [facility] once before on until 01/16/20. Following that, he has visited the emergency department 4 times and then visited a fifth time on 03/13/20 and was admitted. His other presentations have been strange. They have focused on odd somatic complaints, on things like requesting a mental health evaluation, needing medication changes , hearing himself talk in his head, and this time endorsing depression and psychosis. In the past, he has taken Risperdal 3 mg. He stopped that himself. He also received Consta 50 mg, which he did not follow up on to get the continuing injections. To our knowledge, he has never been violent and his suicidal ideation seems to have stopped now that he is part of the milieu. PAST MEDICAL HISTORY: He denies having medical history of any significance. TRAUMA HISTORY: He alludes to traumatic events with his family. These are not specified. FAMILY HISTORY: He states that his father overuses alcohol and uses nicotine and his mother he states has a history in the family of myocardial infarction. SUBSTANCE ABUSE: At his previous admission, he denied substance abuse. This time, he acknowledged that he uses cannabis and that he uses nicotine. I did discuss with him his concern about using substances that can be prescribed and we referenced the use of heroin, which he seems to have tried in the past as well. He also stated he has used cocaine 1 time. SOCIAL HISTORY: Golden lives at home with his mother. His mom travels to [place] and is gone for many days at a time and does not know what Golden is doing. Golden went to [employer] a few years ago, but dropped out of it stating he wanted to be at home where it was more comfortable according to his mother. He then went to [employer] where he was working on a degree in liberal arts or possibly nursing; he also dropped out of that. He lives alone except for when his mother is at home. His mother indicates that there is nothing that has gone wrong. It is hard to get explanations from Golden at this time as he is quite disorganized. He is unemployed. He has never been in the . He has no legal problems. REVIEW OF SYSTEMS: The patient reports feeling fatigued. He denies shortness of breath, heat or cold intolerance, chest pain or abdominal pain. He denies neurological symptoms. He denies fevers or changes in weight. PHYSICAL EXAMINATION VITAL SIGNS: On 03/13/20 at 0923, temperature is 98.1, pulse 67, respirations 14, O2 sat on room air 100, blood pressure 131/49. APPEARANCE: Well appearing, no pain/distress, well nourished. SKIN: Warm. Skin color reflects adequate perfusion. EYES: EOMI. NAVEEN. ENT: Hearing grossly normal. RESPIRATORY: Lung sounds clear to auscultation. Breath sounds present. CARDIOVASCULAR: RRR. S1 and S2. ABDOMEN: Nontender, soft, bowel sounds present. MUSCULOSKELETAL: Strength, range of motion intact. NEUROLOGICAL: Sensory and motor intact. Alert and oriented to person, place, time and situation. Normal gait. Facial symmetry and speech normal. LABORATORY DATA: Most data are within normal limits. Exceptions include MCH high at 33, carbon dioxide low at 21, TSH is 4.52. Toxicology screen positive for cannabinoids. MENTAL STATUS EXAM: Golden is a 5-foot 8-inch, 165-pound [place]ian male, who has black hair and quezada skin. He is wearing hospital scrubs. He is moving slowly. Even when a person walks with him and picks up the pace a bit, he still lags behind. He is calm. He is mostly cooperative. His speech is of normal rate, tone, and volume. He appears to be euthymic. He has a blunted affect. His thought processes are impoverished and circumstantial. His thought content is not not obviously delusional,but his somatic complaints are bizarre. He denies being homicidal. He thinks he was suicidal, but he is not that way anymore. He denies auditory and visual hallucinations and does not at this point appear to be responding to internal stimuli. Insight is poor. Judgement is fair. He is alert and oriented x4. DIAGNOSIS: Schizophrenia. IMPRESSION: Golden is a 19-year-old male who is historically diagnosed with schizophrenia, who came to the hospital after stopping his medications in January and he is bringing the complaints of depression and odd thoughts as well as an inability to focus. PLAN: The patient is admitted to the adult behavioral health unit and placed on q.15-minute checks for his own safety. He is encouraged to participate in supportive milieu, individual and group therapies. Estimated length of stay is 2 to 5 days. We will obtain an MMPI for diagnostic clarification. We will titrate medication including Abilify 5 mg and hydroxyzine 50 mg to efficacy and monitor for mood and thought content. Discharge planning will include family involvement and outpatient providers. TOMASA SEGURA, CHLOE [id number]/[facility] #: [id number] JENNIFER
[2020-03-13] MEDS ORDERED: risperiDONE TAB* 3 MG PO SCH (21:00)
[2020-03-13] MEDS ORDERED: ARIPiprazole TAB* 5 MG PO SCH (21:00)
[2020-03-14] MEDS ORDERED: Influenza VAC *QUAD* 2019-20* 0.5 ML SYRINGE IM ONE (09:00)
[2020-03-14] MEDS: Vitamin THERAPEUTIC TAB PO SCH (11:37)
[2020-03-14] MEDS: ARIPiprazole TAB* 15 MG PO ONE ×2 (13:00→14:03)
[2020-03-15] MEDS: Vitamin THERAPEUTIC TAB PO SCH (10:05)
[2020-03-16 08:30] LABS: HDL Cholesterol 63.5 mg/dL
[2020-03-16] MEDS: Vitamin THERAPEUTIC TAB PO SCH (09:18)
--- NOTE | 2020-03-16 14:06 | PN ---
Subjective - Subjective Date of Service: 03/16/20 Service Type: 85918 Hosp care 15 min low complexity Subjective: Mr. James reports that his mood is "OK" and he is sleeping "OK". He denies any subjective experience of hallucinations, paranois or delusions, and adds that no one has told him that they see any of these things in him now. He reports that he feels ready to leave the hospital. I shared with him that this was also Ms. Segura's assessment in her report of his case to me. He offered no complaints about anything nor made any request of me when I offered to adjust meds as needed or convey to staff any unmet needs. Objective - General Observations Appearance: Neat, Well Groomed Appears Stated Age: Yes Stature: WNL Posture: WNL Eye Contact: Average Behavior/Activity: WNL - Interaction Observations Attitude Towards Examiner: Cooperative Stated Mood: Euthymic Speech Pattern/Tone: Clear, Appropriate, Normal Volume Thought Process: Coherent, Goal Directed Perception: WNL Thought Content: WNL Hallucination Type: None, Denies Delusion Type: None, Denies - Cognitive Function Orientation: A&O x 4 Level of Consciousness: Awake, Alert, Appropriate Estimated Intelligence: Normal - Medication Compliance Cooperative with Inpatient Medication Regimen: Yes - Group Participation Participates in Group Activities: Yes Assessment - Assessment Merits Inpatient Hospitalization: For Stabilization, Consolidate Improvements, For Discharge Planning Inpatient DSM-V Dx: F20.0 Clinical Impression: Mr. James reports he has no psychotic symptoms currently and reports no dangerous intent or plan. He states that he feels ready for discharge. He has no complaints or requests of this provider today. Plan - Plan Treatment Plan: Name: OBDULIO JAMES Birthdate: 2000 [id number] Continue current plan. Encourage groups/milieu. Reviewed advisability of use of a face mask to prevent possible spread of COVID-19 virus by asymptomatic carriers. Plan is toward discharge Tuesday. Medications: Current Medications Acetaminophen (Tylenol Tab*) 650 mg PO Q4H PRN PRN Reason: PAIN or TEMP > 101 F Al Hydrox/Mg Hydrox/Simethicone (Maalox Plus*) 30 ml PO Q4H PRN PRN Reason: INDIGESTION Docusate Sodium (Colace Cap*) 100 mg PO BID PRN PRN Reason: CONSTIPATION Hydroxyzine HCl (Atarax Tab*) 50 mg PO BEDTIME PRN PRN Reason: ANXIETY Last Admin: 03/14/20 03:21 Dose: 50 mg Multivitamins (Theragran Tab*) 1 tab PO DAILY MAHESH Last Admin: 03/16/20 09:18 Dose: 1 tab Nicotine Polacrilex (Nicotine Gum*) 2 mg PO Q1H PRN PRN Reason: CRAVING
[2020-03-17] MEDS: Vitamin THERAPEUTIC TAB PO SCH (09:36)
[2020-03-17 09:50] VITALS: BP 116/81
--- NOTE | 2020-03-18 13:25 | DS ---
DISCHARGE SUMMARY: DATE OF ADMISSION: 03/13/20 DATE OF DISCHARGE: 03/17/20 PROVIDER: Tomasa Segura NP, in Psychiatry. SUPERVISING PHYSICIAN: Rod Clayton MD* (dictated by Tomasa Segura NP). DIAGNOSIS: Schizoaffective disorder. CONDITION AT THE TIME OF DISCHARGE: Improved, psychiatrically cleared, stable. Golden participated in groups and was social with peers. His family is agreeable to discharge as is Golden. He has done well here psychiatrically. He tolerated the addition of Abilify and the injection of Aristada Initio and Aristada lauroxil. He will be attending [facility]. MENTAL STATUS EXAM: At the time of discharge, Golden was calm, cooperative and makes good eye contact. He is alert and oriented x4. His grooming is good. His speech pace is normal. Thought processes are generally logical. He is mildly psychotic and mildly delusional, but he denies AH, VH, SI and HI. Insight and judgment are fair. He is willing to follow up and he is urged to see a therapist. DISCHARGE INSTRUCTIONS: A. Medications: Golden is discharged on Colace 100 mg b.i.d. p.r.n. constipation. He also is advised to continue with the medications that were started inpatient including the Aristada lauroxil. He was given Aristada Initio on 03/14/20. He will be due for his next injection on 04/11/20. He was given Aristada 882 mg on 03/14/20. B. Diet is regular. C. Activities as tolerated. He is a person who uses nicotine in the form of a vape. He has declined referral to the [place] [employer] [facility] at this time, but he decides to access this free service in the future. He can contact the Quitline toll free at [phone]. There are no studies pending at the time of discharge. D. Followup care. He is referred to [facility]. He has an intake appointment scheduled on 03/18/20 at 11 a.m. with . If he misses the appointment for any reason he simply needs to call [facility] and they will attempt to reschedule him as soon as possible. He is also referred to Shai Toure MD and it is recommended that he follow up with Dr. Toure if needed within the next 30 days. E. Disposition. He is being sent back to his home, which he shares with his mother. F. Substance abuse followup is not indicated. HOSPITAL COURSE: Part A. Chief Complaint: "I guess I am not a big fan of the [facility].A.R.E[facility] Program." The patient is a 19-year-old single Citizen [place] male with a history of psychosis and reported depression, who arrives brought in by himself and is here on a voluntary status after feeling as though he was having seizure symptoms in which he stated he started over thinking and then shaking uncontrollably. He denies being anxious but he does bounce his legs, lick his fingers, and rubs his face frequently during the interview. Kaung goes by Golden, Golden stopped medications. He stated at one time that Risperdal felt terrible. He stated he got night sweats and he was dizzy when he slept and he woke up nauseated and dizzy. He has reported himself to be depressed. He states that yesterday and today he was experiencing suicidal ideation. Later in the conversation, however, he denies being depressed and he continues to deny being anxious. Golden states that he cannot focus and that is truly his chief complaint. As with the last time he was admitted, he was taking Adderall, additionally he was taking benzodiazepines. He states he needs these because he had trouble sleeping. He does say that he sleeps 4 to 5 hours per night and that one time after his discharge from the hospital he used hydroxyzine 50 to help achieve a better sleep. He also requested Percocet for pain. When asked where his pain was he said it is all over and then retreated and said he does not really think that Percocet has ever helped at all. When I confronted him about his desire to have Adderall, benzodiazepines, and Percocet, I threw in other words like Vicodin and ibuprofen and he did not recognize any words other than those he had already mentioned; that is the point where he said "I am not a big fan of the D.A.R.E. Program." He states that he has been using cannabis and he does use a Juul. He does request nicotine replacement while in the hospital. He is disorganized. His speech derails from time to time. He does not seem to have insight into the questions we are asking or the purpose of these questions. He states that he would like to be discharged now and he declines to try Risperdal, again. He declines Invega. He declines Abilify. He states he feels better now. Part B. Psychiatric treatment was rendered. The patient was admitted to the adult behavioral health unit and placed on 15 minute checks for safety. He did well on the unit and went to groups, although he did not participate in those groups. He interacted with peers well, although his interactions were marked by bizarre latencies and odd staring moments. On 03/16/20, Golden reported that his mood was okay and he is sleeping okay. He denied any subjective experience of hallucination, paranoia, or delusions and added that no one has told him that they see any of these things in him now. He reports that he feels ready to leave the hospital. He offered no complaints about anything and made no requests when offered to adjust meds or convey any unmet needs on that day. Golden tolerated the addition of Abilify and tolerated the addition of Aristada. We did not meet with his family as they were unavailable. No consults were entered for Golden. He is somewhat improved. He appears at most times to be asymptomatic, although he does continue to have some speech latencies and odd staring moment. He is future oriented and he is eager to go home, his complaints seem to be unfounded specifically his depression complaint. He is indeed psychotic, however, and again he is not a danger to himself or anyone else. He is future oriented and eager to go home. TOMASA SEGURA, CHLOE [id number]/[facility] #: [id number] JENNIFER
--- NOTE | 2020-03-19 10:45 | CONS ---
PSYCHOLOGICAL REPORT: DATE OF CONSULTATION: 03/17/20 PROCEDURE CODE: [id number]. RELEVANT HISTORY: Donavon goes by "Golden" with this being his second admission in recent months to [facility]. He is a 19-year-old single [place] male with a history of psychosis as well as concerns reg arding depression, who brought himself in for evaluation secondary to concerns regarding seizure symp toms. He described overthinking and uncontrollably shaking, but was found to be medically stable. Du ring this interview, Golden acknowledged having stopped taking Risperdal after being discharged from this facility, describing how it made him "feel terrible." He described having difficulty with night sweats and being dizzy as well as being nauseous. Golden described having difficulties with depressi on, but then during his evaluation, denied depression and described anxiety. He apparently was seeki ng medication such as Adderall and benzodiazepines as well as pain medications. He was rather disorg anized in his presentation when questioned about difficulties with pain, only having some familiarity with the drug Percocet. He went on to describe how he was "not a big fan of the [facility] program," whic h is a program that addresses substance abuse. While on the unit, Golden presented as disorganized in thought and had difficulties with social inter action, often remaining secluded to his room. His attendance in group programming was minimal, brigitte stantony stopping in for a brief period of time in the group before leaving without speaking. His engage ment with this display card writer was quite minimal as he declined interest in discussing test results or having an individual conversation. Golden currently lives with his mother, who apparently experiences great deal of conflict with her. Historically, he attended [employer], but dropped out and more recently went to [facility], but also d ropped out of placement there as well. He currently is unemployed and denied having any legal diffic ulties. TEST RESULTS: Golden provides a valid protocol on this administration of the MMPI- 2 as he does not elevate concerns regarding possible fake-good protocol. He has a very serious elevation on both the hypomania and the schizophrenia indices and also very low score in the social introversion scale. Hi s elevations here coupled with a very low score on depression are felt to be indicative of either psy chosis or hypomanic experience that may have induced his disorganization in thought. His very low sc ore on the social introversion scale is reflective of a person who is interested in other people, but who tends towards very superficial interactions and relationships. IMPRESSION AND RECOMMENDATIONS: Continuing treatment with Golden should impress upon the importance of medication compliance in regards to helping him be better cognitively organized and with improved cognitive function. Concerns are that he is likely to stop taking psychiatric medications unless it involves ADHD medications and/or benzodiazepines. He did not impress as attaining stable insights re garding the importance of medication and treatment, and given his age and reluctance to acknowledge p sychiatric phenomena, he is likely to not comply with treatment after discharge. Any ongoing efforts should attempt to establish his supportive rapport with Golden so he may be likely to return if he d oes attend. DIAGNOSTIC IMPRESSION: Supports schizophrenia disorganized type with a rule out of bipolar 1 disorde don [id number]/[facility] #: [id number]
== END 2020-03-17 13:05 | disposition home or self-care (01) | DRG 750 ==
LOC: ED 21:08 → BSU 03-13 01:36
PROVIDERS: ADMIT Psychiatry & Neurology Psychiatry; ATTEND Psychiatry & Neurology Psychiatry
DX: F25.9 Schizoaffective disorder, unspecified (principal); R45.851 Suicidal ideations; F17.210 Nicotine dependence, cigarettes, uncomplicated; Z81.8 Family history of other mental and behavioral disorders; Z81.1 Family history of alcohol abuse and dependence; Z81.2 Family history of tobacco abuse and dependence; Z82.49 Family history of ischemic heart disease and other diseases of the circulatory system
CPT/HCPCS: 36415; 80053; 80061; 80307; 80320; 80329; 81003; 83036; 84443; 85025; 90853; 99222; 99231; 99238; 99284; A9270-GY; G0480

== ENCOUNTER 2020-08-22 21:22 | Inpatient (IN) ==
[2020-08-22 23:54] LABS: ABS Basophils 0.1 10^3/ul (0-0.2); ABS Lymphocytes 1.4 10^3/ul (1.0-4.8); ABS Monocytes 0.4 10^3/ul (0-0.8); ABS Neutrophils 4.9 10^3/ul (1.5-7.7); Eosinophil % 0.6 %; Hematocrit 45 % (42-52); Hemoglobin 15.2 g/dL (14.0-18.0); Lymphocyte % 20.7 %; Mean Corpuscular HGB Conc 34 g/dL (31-36); Mean Corpuscular Hemoglobin 32 pg (27-31); Mean Corpuscular Volume 95 fL (80-94); Mean Platelet Volume 9.4 fL (7.4-10.4); Nucleated Red Blood Cells % 0.1; Platelet Count 250 10^3/uL (150-450); Red Blood Count 4.78 10^6 /uL (4.18-5.48); Red Cell Distribution Width 12 % (10-15); White Blood Count 6.8 10^3/uL (3.5-10.8)
[2020-08-23 00:08] LABS: ALT 9 U/L (7-52); AST 11 U/L (13-39); Albumin/Globulin Ratio 2.2 (1-3); Alkaline Phosphatase 43 U/L (34-104); Anion Gap 9 mmol/L (2-11); BUN/Creatinine Ratio 13.2 (8-20); Blood Urea Nitrogen 14 mg/dL (6-24); CO2 Carbon Dioxide 25 mmol/L (22-32); Calcium 9.7 mg/dL (8.6-10.3); Chloride 104 mmol/L (101-111); EGFR African American 107.8 (>60); EGFR Non-African American 89.1 (>60); Globulin 2.3 g/dL (2-4); Glucose 120 mg/dL (70-100); Potassium 3.6 mmol/L (3.5-5.0); Sodium 138 mmol/L (135-145); Total Protein 7.3 g/dL (6.4-8.9)
[2020-08-23 00:08] LABS: Urine Appearance Clear; Urine Bilirubin Negative (Negative); Urine Blood Negative (Negative); Urine Color Yellow; Urine Glucose Negative (Negative); Urine Ketones Negative (Negative); Urine Nitrite Negative (Negative); Urine Protein Negative (Negative); Urine Urobilinogen Negative (Negative)
[2020-08-23 00:34] LABS: Acetaminophen < 15 mcg/mL; Alcohol, S < 10 mg/dL (<10); Salicylate < 2.50 mg/dL (<30)
[2020-08-23 00:41] LABS: Urine Benzodiazepine Screen None Detected (None Detect); Urine Cannabinoids Screen Presumptive Positive (None Detect); Urine Opiates Screen None Detected (None Detect)
[2020-08-23 00:50] LABS: TSH Ultra Thyroid Stim Horm 3.62 mcIU/mL (0.34-5.60)
[2020-08-23] MEDS ORDERED: Al Hydrox/Mg Hydrox/Simet LIQ 30 ML UDC PO PRN (05:20)
[2020-08-23] MEDS ORDERED: Nicotine GUM 2MG FRUIT FLAVOR PO PRN (06:00)
[2020-08-23] MEDS: Vitamin THERAPEUTIC TAB PO SCH (09:38)
[2020-08-24] MEDS: Vitamin THERAPEUTIC TAB PO SCH (08:48)
[2020-08-25 09:06] LABS: HDL Cholesterol 50.7 mg/dL
[2020-08-25] MEDS: Vitamin THERAPEUTIC TAB PO SCH (10:44)
[2020-08-26] MEDS: Vitamin THERAPEUTIC TAB PO SCH (08:30)
[2020-08-27] MEDS: Vitamin THERAPEUTIC TAB PO SCH (09:39)
[2020-08-28] MEDS: Vitamin THERAPEUTIC TAB PO SCH (09:53)
[2020-08-28 20:49] VITALS: BP 124/62
[2020-08-29] MEDS: Vitamin THERAPEUTIC TAB PO SCH (10:12)
[2020-08-29] MEDS ORDERED: risperiDONE CONSTA 50 MG IM ONE (13:13)
== END 2020-08-29 16:20 | disposition home or self-care (01) | DRG 750 ==
LOC: ED 21:22 → BSU 08-23 05:01
PROVIDERS: ADMIT Psychiatry & Neurology Psychiatry; ATTEND Psychiatry & Neurology Psychiatry

== ENCOUNTER 2020-09-13 11:48 | Inpatient (IN) ==
[2020-09-13] MEDS ORDERED: Al Hydrox/Mg Hydrox/Simet LIQ 30 ML UDC PO PRN (19:55)
[2020-09-14] MEDS: Vitamin THERAPEUTIC TAB PO SCH (08:09)
[2020-09-15] MEDS: Vitamin THERAPEUTIC TAB PO SCH (07:46)
[2020-09-15 08:19] VITALS: BP 126/59
== END 2020-09-15 15:30 | disposition home or self-care (01) | DRG 774 ==
LOC: ED 11:48 → BSU 19:33
PROVIDERS: ADMIT Psychiatry & Neurology Psychiatry; ATTEND Psychiatry & Neurology Psychiatry

== ENCOUNTER 2020-10-21 19:25 | Inpatient (IN) ==
[2020-10-21] MEDS ORDERED: NS 0.9% 1000 ml BAG 1,000 ML IV ONE (19:48)
[2020-10-21 19:56] LABS: ABS Lymphocytes 1.4 10^3/ul (1.0-4.8); ABS Monocytes 0.7 10^3/ul (0-0.8); ABS Neutrophils 7.5 10^3/ul (1.5-7.7); Hematocrit 45 % (42-52); Hemoglobin 15.8 g/dL (14.0-18.0); Lymphocyte % 14.3 %; Mean Corpuscular HGB Conc 35 g/dL (31-36); Mean Corpuscular Hemoglobin 33 pg (27-31); Mean Corpuscular Volume 93 fL (80-94); Mean Platelet Volume 9.6 fL (7.4-10.4); Platelet Count 292 10^3/uL (150-450); Red Blood Count 4.82 10^6 /uL (4.18-5.48); Red Cell Distribution Width 12 % (10-15); White Blood Count 9.6 10^3/uL (3.5-10.8)
[2020-10-21 20:18] LABS: Acetaminophen < 15 mcg/mL; Alcohol, S 10 mg/dL (<10); Salicylate < 2.50 mg/dL (<30)
[2020-10-21 20:19] LABS: ALT 17 U/L (7-52); AST 18 U/L (13-39); Albumin 5.1 g/dL (3.2-5.2); Albumin/Globulin Ratio 2.1 (1-3); Alkaline Phosphatase 38 U/L (34-104); Anion Gap 15 mmol/L (2-11); BUN/Creatinine Ratio 10.2 (8-20); Blood Urea Nitrogen 10 mg/dL (6-24); CO2 Carbon Dioxide 21 mmol/L (22-32); Calcium 10.6 mg/dL (8.6-10.3); Chloride 103 mmol/L (101-111); Creatine Kinase 797 U/L (10-223); EGFR Non-African American 97.5 (>60); Globulin 2.4 g/dL (2-4); Glucose 133 mg/dL (70-100); Potassium 3.4 mmol/L (3.5-5.0); Sodium 139 mmol/L (135-145); Total Protein 7.5 g/dL (6.4-8.9)
[2020-10-21 20:20] LABS: Troponin I 0.01 ng/mL (<0.03)
[2020-10-21 20:33] LABS: TSH Ultra Thyroid Stim Horm 2.82 mcIU/mL (0.34-5.60)
[2020-10-21] MEDS ORDERED: Lactated Ringers 1000 ml BAG 1,000 ML IV ONE (23:45)
[2020-10-22] MEDS ORDERED: NS 0.9% 1000 ml BAG 1,000 ML IV ONE ×2 (01:49→23:50)
[2020-10-22 03:02] LABS: Urine Appearance Cloudy; Urine Bilirubin Negative (Negative); Urine Blood Negative (Negative); Urine Color Yellow; Urine Glucose Negative (Negative); Urine Ketones 2+ (Negative); Urine Nitrite Negative (Negative); Urine Protein Negative (Negative); Urine Specific Gravity 1.014 (1.010-1.030); Urine Urobilinogen Negative (Negative)
[2020-10-22 03:16] LABS: Urine Benzodiazepine Screen None Detected (None Detect); Urine Cannabinoids Screen Presumptive Positive (None Detect); Urine Opiates Screen None Detected (None Detect)
[2020-10-22] MEDS ORDERED: Al Hydrox/Mg Hydrox/Simet LIQ 30 ML UDC PO PRN (06:30)
[2020-10-22] MEDS ORDERED: chlorproMAZINE 25 MG/ML 2 ML (50 MG) IM PRN (06:32)
[2020-10-22] MEDS ORDERED: NS 0.9% 1000 ml BAG 1,000 ML IV SCH (12:15)
[2020-10-22] MEDS: Vitamin THERAPEUTIC TAB PO SCH (13:07)
[2020-10-22] MEDS ORDERED: LORazepam 2 mg VIAL 1 ml IM ONE (14:29)
[2020-10-22] MEDS ORDERED: Lorazepam PYXIS KEY PRN (14:29)
[2020-10-22] MEDS ORDERED: Lorazepam PYXIS KEY ONE (14:32)
[2020-10-22] MEDS ORDERED: LORazepam 2 mg VIAL 1 ml ONE (14:32)
[2020-10-22 22:57] LABS: Albumin 4.9 g/dL (3.2-5.2); Calcium 10.2 mg/dL (8.6-10.3); Magnesium 1.9 mg/dL (1.9-2.7); Potassium 3.7 mmol/L (3.5-5.0); Total Bilirubin 0.9 mg/dL (0.2-1.0)
[2020-10-22 23:03] LABS: Albumin/Globulin Ratio 2.2 (1-3); BUN/Creatinine Ratio 10.3 (8-20); EGFR African American 119.4 (>60); EGFR Non-African American 98.7 (>60); Globulin 2.2 g/dL (2-4); Total Protein 7.1 g/dL (6.4-8.9)
[2020-10-23 07:11] LABS: Hematocrit 43 % (42-52); Hemoglobin 14.6 g/dL (14.0-18.0); Mean Corpuscular HGB Conc 34 g/dL (31-36); Mean Corpuscular Hemoglobin 32 pg (27-31); Mean Corpuscular Volume 94 fL (80-94); Mean Platelet Volume 9.3 fL (7.4-10.4); Platelet Count 268 10^3/uL (150-450); Red Blood Count 4.51 10^6 /uL (4.18-5.48); Red Cell Distribution Width 13 % (10-15); White Blood Count 7.4 10^3/uL (3.5-10.8)
[2020-10-23 07:19] LABS: ABS Basophils 0.1 10^3/ul (0-0.2); ABS Lymphocytes 1.4 10^3/ul (1.0-4.8); ABS Monocytes 0.6 10^3/ul (0-0.8); ABS Neutrophils 5.4 10^3/ul (1.5-7.7); Eosinophil % 0.3 %; Lymphocyte % 18.4 %
[2020-10-23 07:30] LABS: Albumin 4.7 g/dL (3.2-5.2); Albumin/Globulin Ratio 2.2 (1-3); BUN/Creatinine Ratio 11.8 (8-20); Calcium 9.6 mg/dL (8.6-10.3); EGFR Non-African American 114.9 (>60); Globulin 2.1 g/dL (2-4); Potassium 3.4 mmol/L (3.5-5.0); Total Bilirubin 1.4 mg/dL (0.2-1.0); Total Protein 6.8 g/dL (6.4-8.9)
[2020-10-23] MEDS: Vitamin THERAPEUTIC TAB PO SCH ×2 (10:21→10:24)
[2020-10-23] MEDS ORDERED: Potassium Chlor 20 meq TAB.ER PO ONE (14:31)
[2020-10-23] MEDS ORDERED: diPHENhydraMINE IV 50 MG/ML 1 ml VIAL (BENADRYL) ONE (15:52)
[2020-10-23] MEDS ORDERED: diPHENhydraMINE IV 50 MG/ML 1 ml VIAL (BENADRYL) IM ONE (17:00)
[2020-10-23] MEDS: diPHENhydraMINE 25 mg TAB PO SCH (22:02)
[2020-10-24] MEDS: diPHENhydraMINE 25 mg TAB PO SCH ×4 (03:56→22:02)
[2020-10-24 07:05] LABS: Albumin 5.1 g/dL (3.2-5.2); Albumin/Globulin Ratio 2.2 (1-3); BUN/Creatinine Ratio 10.8 (8-20); Calcium 10.3 mg/dL (8.6-10.3); EGFR African American 112.7 (>60); EGFR Non-African American 93.1 (>60); Globulin 2.3 g/dL (2-4); Potassium 4.2 mmol/L (3.5-5.0); Total Bilirubin 1.3 mg/dL (0.2-1.0); Total Protein 7.4 g/dL (6.4-8.9)
[2020-10-24] MEDS: Vitamin THERAPEUTIC TAB PO SCH (07:38)
[2020-10-24] MEDS ORDERED: LORazepam 2 mg VIAL 1 ml ONE (08:45)
[2020-10-24] MEDS ORDERED: Lorazepam PYXIS KEY ONE (08:45)
[2020-10-24] MEDS ORDERED: Benztropine 2 mg AMP 1 MG/ML 2 ml AMP ONE (09:50)
[2020-10-25] MEDS: Vitamin THERAPEUTIC TAB PO SCH (10:47)
[2020-10-26] MEDS ORDERED: LORazepam 2 mg VIAL 1 ml IM ONE (08:00)
[2020-10-26] MEDS: Vitamin THERAPEUTIC TAB PO SCH (08:24)
[2020-10-27] MEDS: Vitamin THERAPEUTIC TAB PO SCH (09:29)
[2020-10-27] MEDS ORDERED: LORazepam 2 mg VIAL 1 ml IM PRN (10:02)
[2020-10-27] MEDS: LORazepam 2 mg VIAL 1 ml IM SCH ×3 (14:32→23:32)
[2020-10-28] MEDS: LORazepam 2 mg VIAL 1 ml IM SCH ×2 (07:37→11:55)
[2020-10-28 09:04] LABS: BUN/Creatinine Ratio 17.4 (8-20); Calcium 9.9 mg/dL (8.6-10.3); EGFR African American 137.2 (>60); EGFR Non-African American 113.4 (>60); Magnesium 2.1 mg/dL (1.9-2.7); Potassium 3.9 mmol/L (3.5-5.0)
[2020-10-28] MEDS: Vitamin THERAPEUTIC TAB PO SCH (11:55)
[2020-10-29] MEDS: Vitamin THERAPEUTIC TAB PO SCH (08:28)
[2020-10-30] MEDS: Vitamin THERAPEUTIC TAB PO SCH (09:41)
[2020-10-31] MEDS: Vitamin THERAPEUTIC TAB PO SCH (09:51)
[2020-11-01 02:47] LABS: Urine Appearance Clear; Urine Bilirubin Negative (Negative); Urine Blood Negative (Negative); Urine Color Yellow; Urine Glucose Negative (Negative); Urine Ketones Negative (Negative); Urine Nitrite Negative (Negative); Urine Protein Negative (Negative); Urine Specific Gravity 1.018 (1.010-1.030); Urine Urobilinogen Negative (Negative)
[2020-11-01] MEDS: Vitamin THERAPEUTIC TAB PO SCH (10:05)
[2020-11-02] MEDS: Vitamin THERAPEUTIC TAB PO SCH (10:22)
[2020-11-03] MEDS: Vitamin THERAPEUTIC TAB PO SCH (11:25)
[2020-11-03 13:07] LABS: Chlamydia trachomatis NAA Negative (Negative); Neisseria gonorrhoeae (GC) NAA Negative (Negative)
[2020-11-04] MEDS: Vitamin THERAPEUTIC TAB PO SCH (09:32)
[2020-11-05] MEDS: Vitamin THERAPEUTIC TAB PO SCH (07:38)
[2020-11-06] MEDS: Vitamin THERAPEUTIC TAB PO SCH (08:40)
[2020-11-06] MEDS ORDERED: LORazepam 2 mg VIAL 1 ml IM ONE (17:00)
[2020-11-06] MEDS ORDERED: LORazepam 2 mg VIAL 1 ml ONE (17:06)
[2020-11-07] MEDS: Vitamin THERAPEUTIC TAB PO SCH (09:21)
[2020-11-08] MEDS: Vitamin THERAPEUTIC TAB PO SCH (08:30)
[2020-11-08] MEDS ORDERED: LORazepam 2 mg VIAL 1 ml ONE (11:38)
[2020-11-08] MEDS ORDERED: Lorazepam PYXIS KEY ONE (11:38)
[2020-11-09] MEDS: Vitamin THERAPEUTIC TAB PO SCH (08:23)
[2020-11-10] MEDS: Vitamin THERAPEUTIC TAB PO SCH (09:26)
[2020-11-11] MEDS: Vitamin THERAPEUTIC TAB PO SCH (09:18)
[2020-11-12] MEDS: Vitamin THERAPEUTIC TAB PO SCH (08:54)
[2020-11-13] MEDS: Vitamin THERAPEUTIC TAB PO SCH (09:07)
[2020-11-14] MEDS: Vitamin THERAPEUTIC TAB PO SCH (09:02)
[2020-11-14] MEDS ORDERED: Paliperidone SUSTENNA 234 MG/1.5 ML IM ONE (12:08)
[2020-11-14] MEDS: Nicotine GUM 2MG FRUIT FLAVOR PO PRN (20:48)
[2020-11-15] MEDS: Vitamin THERAPEUTIC TAB PO SCH (07:42)
[2020-11-15] MEDS: Nicotine GUM 2MG FRUIT FLAVOR PO PRN ×4 (08:09→15:35)
[2020-11-16] MEDS: Nicotine GUM 2MG FRUIT FLAVOR PO PRN ×5 (04:47→22:02)
[2020-11-16] MEDS: Vitamin THERAPEUTIC TAB PO SCH (07:40)
[2020-11-17] MEDS: Vitamin THERAPEUTIC TAB PO SCH ×2 (07:55→09:34)
[2020-11-17] MEDS: Nicotine GUM 2MG FRUIT FLAVOR PO PRN ×5 (07:56→20:30)
[2020-11-18] MEDS: Nicotine GUM 2MG FRUIT FLAVOR PO PRN ×5 (07:41→23:37)
[2020-11-18] MEDS: Vitamin THERAPEUTIC TAB PO SCH (09:14)
[2020-11-19] MEDS: Vitamin THERAPEUTIC TAB PO SCH (07:48)
[2020-11-19] MEDS: Nicotine GUM 2MG FRUIT FLAVOR PO PRN ×4 (08:21→18:36)
[2020-11-19] MEDS ORDERED: Paliperidone SUSTENNA 156 MG/1 ML IM ONE (10:00)
[2020-11-20] MEDS: Vitamin THERAPEUTIC TAB PO SCH (10:29)
[2020-11-20] MEDS: Nicotine GUM 2MG FRUIT FLAVOR PO PRN (15:09)
[2020-11-21] MEDS: Vitamin THERAPEUTIC TAB PO SCH (08:35)
[2020-11-21] MEDS: Nicotine GUM 2MG FRUIT FLAVOR PO PRN (13:00)
[2020-11-22] MEDS: Vitamin THERAPEUTIC TAB PO SCH (09:13)
[2020-11-23] MEDS: Vitamin THERAPEUTIC TAB PO SCH (09:33)
[2020-11-23] MEDS: Nicotine GUM 2MG FRUIT FLAVOR PO PRN ×2 (12:45→17:25)
[2020-11-24] MEDS: Vitamin THERAPEUTIC TAB PO SCH (11:42)
[2020-11-24] MEDS: Nicotine GUM 2MG FRUIT FLAVOR PO PRN (12:28)
[2020-11-25] MEDS: Vitamin THERAPEUTIC TAB PO SCH (14:49)
[2020-11-25] MEDS: Nicotine GUM 2MG FRUIT FLAVOR PO PRN (17:25)
[2020-11-26] MEDS: Vitamin THERAPEUTIC TAB PO SCH (08:31)
[2020-11-26] MEDS: Nicotine GUM 2MG FRUIT FLAVOR PO PRN (12:20)
[2020-11-27 08:48] VITALS: BP 142/77
== END 2020-11-27 12:00 | DRG 750 ==
LOC: ED 19:25 → BSU 10-22 04:00 → MEDTELE 10-22 20:43 → BSU 10-23 14:59
PROVIDERS: ADMIT Psychiatry & Neurology Psychiatry; ATTEND Psychiatry & Neurology Psychiatry

== ENCOUNTER 2021-04-24 10:56 | Inpatient (IN) ==
[2021-04-24 12:13] LABS: ABS Eosinophils 0.1 10^3/ul (0-0.6); ABS Lymphocytes 1.8 10^3/ul (1.0-4.8); ABS Monocytes 0.4 10^3/ul (0-0.8); ABS Neutrophils 4.9 10^3/ul (1.5-7.7); Eosinophil % 1.1 %; Hematocrit 50 % (42-52); Hemoglobin 17.2 g/dL (14.0-18.0); Lymphocyte % 24.7 %; Mean Corpuscular HGB Conc 34 g/dL (31-36); Mean Corpuscular Hemoglobin 32 pg (27-31); Mean Corpuscular Volume 94 fL (80-94); Mean Platelet Volume 9.4 fL (7.4-10.4); Nucleated Red Blood Cells % 0.1; Platelet Count 303 10^3/uL (150-450); Red Blood Count 5.33 10^6 /uL (4.18-5.48); Red Cell Distribution Width 12 % (10-15); White Blood Count 7.2 10^3/uL (3.5-10.8)
[2021-04-24 12:22] LABS: Albumin 5.2 g/dL (3.2-5.2); Anion Gap 8 mmol/L (2-11); CO2 Carbon Dioxide 25 mmol/L (22-32); Calcium 9.8 mg/dL (8.6-10.3); Chloride 106 mmol/L (101-111); Potassium 3.8 mmol/L (3.5-5.0); Sodium 139 mmol/L (135-145)
[2021-04-24 12:28] LABS: ALT 15 U/L (7-52); AST 18 U/L (13-39); Albumin/Globulin Ratio 1.9 (1-3); Alkaline Phosphatase 56 U/L (35-149); Blood Urea Nitrogen 12 mg/dL (6-24); EGFR African American 128.9 (>60); EGFR Non-African American 106.5 (>60); Globulin 2.7 g/dL (2-4); Glucose 99 mg/dL (70-100); Total Protein 7.9 g/dL (6.4-8.9)
[2021-04-24 12:45] LABS: Acetaminophen < 15 mcg/mL; Alcohol, S < 10 mg/dL (<10); Salicylate < 2.50 mg/dL (<30)
[2021-04-24 12:56] LABS: TSH Ultra Thyroid Stim Horm 3.76 mcIU/mL (0.34-5.60)
[2021-04-24 13:31] LABS: Urine Appearance Clear; Urine Bilirubin Negative (Negative); Urine Blood Negative (Negative); Urine Color Straw; Urine Glucose Negative (Negative); Urine Ketones Negative (Negative); Urine Nitrite Negative (Negative); Urine Protein Negative (Negative); Urine Specific Gravity 1.005 (1.002-1.030); Urine Urobilinogen Negative (Negative)
[2021-04-24] MEDS ORDERED: Nicotine GUM 2MG FRUIT FLAVOR PO PRN ×2 (13:48→13:52)
[2021-04-24] MEDS ORDERED: Al Hydrox/Mg Hydrox/Simet LIQ 30 ML UDC PO PRN ×2 (13:48→13:52)
[2021-04-24 13:59] LABS: Urine Benzodiazepine Screen None Detected (None Detect); Urine Cannabinoids Screen None Detected (None Detect); Urine Opiates Screen None Detected (None Detect)
[2021-04-25] MEDS ORDERED: Vitamin THERAPEUTIC TAB PO SCH (09:00)
[2021-04-25] MEDS: Multivitamins/Minerals TAB PO SCH (09:22)
[2021-04-26 08:21] LABS: HDL Cholesterol 46.7 mg/dL
[2021-04-26] MEDS: Multivitamins/Minerals TAB PO SCH (08:37)
[2021-04-27] MEDS: Multivitamins/Minerals TAB PO SCH (07:32)
[2021-04-28] MEDS: Multivitamins/Minerals TAB PO SCH (08:18)
[2021-04-28 09:36] VITALS: BP 135/70
== END 2021-04-28 13:55 | disposition home or self-care (01) ==
LOC: ED 10:56 → BSU 16:27
PROVIDERS: ADMIT Psychiatry & Neurology Psychiatry; ATTEND Psychiatry & Neurology Psychiatry

== ENCOUNTER 2021-05-14 11:46 | Inpatient (IN) ==
[2021-05-14 12:45] LABS: ABS Lymphocytes 1.6 10^3/ul (1.0-4.8); ABS Monocytes 0.6 10^3/ul (0-0.8); ABS Neutrophils 5.4 10^3/ul (1.5-7.7); Eosinophil % 0.6 %; Hematocrit 45 % (42-52); Hemoglobin 15.3 g/dL (14.0-18.0); Lymphocyte % 21.2 %; Mean Corpuscular HGB Conc 34 g/dL (31-36); Mean Corpuscular Hemoglobin 32 pg (27-31); Mean Corpuscular Volume 94 fL (80-94); Mean Platelet Volume 9.2 fL (7.4-10.4); Platelet Count 260 10^3/uL (150-450); Red Blood Count 4.79 10^6 /uL (4.18-5.48); Red Cell Distribution Width 12 % (10-15); White Blood Count 7.6 10^3/uL (3.5-10.8)
[2021-05-14 13:03] LABS: ALT 30 U/L (7-52); AST 18 U/L (13-39); Albumin 4.8 g/dL (3.2-5.2); Albumin/Globulin Ratio 1.8 (1-3); Alkaline Phosphatase 54 U/L (35-149); Anion Gap 9 mmol/L (2-11); Blood Urea Nitrogen 15 mg/dL (6-24); CO2 Carbon Dioxide 25 mmol/L (22-32); Calcium 10.1 mg/dL (8.6-10.3); Chloride 98 mmol/L (101-111); EGFR African American 111.6 (>60); EGFR Non-African American 92.2 (>60); Globulin 2.6 g/dL (2-4); Glucose 86 mg/dL (70-100); Potassium 3.5 mmol/L (3.5-5.0); Sodium 132 mmol/L (135-145); Total Protein 7.4 g/dL (6.4-8.9)
[2021-05-14 13:03] LABS: Urine Benzodiazepine Screen None Detected (None Detect); Urine Cannabinoids Screen Presumptive Positive (None Detect); Urine Opiates Screen None Detected (None Detect)
[2021-05-14 13:06] LABS: Acetaminophen < 15 mcg/mL; Alcohol, S < 10 mg/dL (<10); Salicylate < 2.50 mg/dL (<30)
[2021-05-14 13:21] LABS: TSH Ultra Thyroid Stim Horm 5.13 mcIU/mL (0.34-5.60)
[2021-05-14] MEDS ORDERED: Al Hydrox/Mg Hydrox/Simet LIQ 30 ML UDC PO PRN (13:54)
[2021-05-14 14:48] LABS: Urine Appearance Clear; Urine Bilirubin Negative (Negative); Urine Blood Negative (Negative); Urine Color Colorless; Urine Glucose Negative (Negative); Urine Ketones Negative (Negative); Urine Nitrite Negative (Negative); Urine Protein Negative (Negative); Urine Specific Gravity 1.001 (1.002-1.030); Urine Urobilinogen Negative (Negative)
[2021-05-14] MEDS: Nicotine GUM 2MG FRUIT FLAVOR PO PRN ×2 (16:34→21:33)
[2021-05-15] MEDS: Nicotine GUM 2MG FRUIT FLAVOR PO PRN ×2 (16:02→20:03)
[2021-05-16] MEDS: Nicotine GUM 2MG FRUIT FLAVOR PO PRN ×2 (11:28→22:36)
[2021-05-17] MEDS: Nicotine GUM 2MG FRUIT FLAVOR PO PRN ×3 (09:15→17:21)
[2021-05-18] MEDS: Nicotine GUM 2MG FRUIT FLAVOR PO PRN (17:48)
[2021-05-19] MEDS: Nicotine GUM 2MG FRUIT FLAVOR PO PRN ×4 (08:08→20:26)
[2021-05-20] MEDS: Nicotine GUM 2MG FRUIT FLAVOR PO PRN ×3 (09:07→19:17)
[2021-05-21] MEDS: Nicotine GUM 2MG FRUIT FLAVOR PO PRN ×2 (17:36→21:53)
[2021-05-22] MEDS: Nicotine GUM 2MG FRUIT FLAVOR PO PRN ×3 (12:35→20:50)
[2021-05-23] MEDS: Nicotine GUM 2MG FRUIT FLAVOR PO PRN ×2 (12:20→17:26)
[2021-05-24] MEDS: Nicotine GUM 2MG FRUIT FLAVOR PO PRN ×2 (11:07→17:21)
[2021-05-25] MEDS: Nicotine GUM 2MG FRUIT FLAVOR PO PRN ×3 (08:15→20:23)
[2021-05-26] MEDS: Nicotine GUM 2MG FRUIT FLAVOR PO PRN ×2 (09:28→18:07)
[2021-05-27] MEDS: Nicotine GUM 2MG FRUIT FLAVOR PO PRN (08:42)
[2021-05-30] MEDS: Nicotine GUM 2MG FRUIT FLAVOR PO PRN ×3 (10:44→17:40)
[2021-05-30 13:36] LABS: Albumin 4.5 g/dL (3.2-5.2); Calcium 9.8 mg/dL (8.6-10.3); EGFR African American 112.8 (>60); EGFR Non-African American 93.2 (>60); Globulin 2.3 g/dL (2-4); Potassium 3.9 mmol/L (3.5-5.0); Total Bilirubin 0.6 mg/dL (0.2-1.0); Total Protein 6.8 g/dL (6.4-8.9)
[2021-05-30 14:10] LABS: Free T4 0.7 ng/dL (0.61-1.12)
[2021-05-30 15:30] LABS: Free T3 3.3 pg/mL (2.5-3.9)
[2021-05-31] MEDS: Nicotine GUM 2MG FRUIT FLAVOR PO PRN (17:24)
[2021-06-02 14:57] LABS: ABS Eosinophils 0.1 10^3/ul (0-0.6); ABS Lymphocytes 1.8 10^3/ul (1.0-4.8); ABS Monocytes 0.4 10^3/ul (0-0.8); ABS Neutrophils 4.2 10^3/ul (1.5-7.7); Eosinophil % 1.1 %; Hematocrit 46 % (42-52); Hemoglobin 15.5 g/dL (14.0-18.0); Mean Corpuscular HGB Conc 34 g/dL (31-36); Mean Corpuscular Hemoglobin 32 pg (27-31); Mean Corpuscular Volume 94 fL (80-94); Mean Platelet Volume 8.9 fL (7.4-10.4); Nucleated Red Blood Cells % 0.1; Platelet Count 268 10^3/uL (150-450); Red Blood Count 4.92 10^6 /uL (4.18-5.48); Red Cell Distribution Width 12 % (10-15); White Blood Count 6.5 10^3/uL (3.5-10.8)
[2021-06-02 15:25] LABS: Free T3 3.8 pg/mL (2.5-3.9)
[2021-06-02 15:26] LABS: Free T4 0.59 ng/dL (0.61-1.12)
[2021-06-02 15:30] LABS: Albumin 4.9 g/dL (3.2-5.2); EGFR Non-African American 110.8 (>60); Globulin 2.5 g/dL (2-4); Potassium 3.7 mmol/L (3.5-5.0); Total Bilirubin 0.6 mg/dL (0.2-1.0); Total Protein 7.4 g/dL (6.4-8.9)
[2021-06-06] MEDS: Nicotine GUM 2MG FRUIT FLAVOR PO PRN (15:21)
[2021-06-07] MEDS: Nicotine GUM 2MG FRUIT FLAVOR PO PRN ×2 (08:30→12:52)
[2021-06-08] MEDS: Nicotine GUM 2MG FRUIT FLAVOR PO PRN ×2 (17:47→21:04)
[2021-06-09 07:31] LABS: Hematocrit 44 % (42-52); Hemoglobin 15.5 g/dL (14.0-18.0); Mean Corpuscular HGB Conc 35 g/dL (31-36); Mean Corpuscular Hemoglobin 33 pg (27-31); Mean Corpuscular Volume 93 fL (80-94); Mean Platelet Volume 9.4 fL (7.4-10.4); Platelet Count 263 10^3/uL (150-450); Red Blood Count 4.76 10^6 /uL (4.18-5.48); Red Cell Distribution Width 13 % (10-15); White Blood Count 7.7 10^3/uL (3.5-10.8)
[2021-06-09 11:14] LABS: ABS Basophils 0.1 10^3/ul (0-0.2); ABS Eosinophils 0.1 10^3/ul (0-0.6); ABS Lymphocytes 2.5 10^3/ul (1.0-4.8); ABS Monocytes 0.5 10^3/ul (0-0.8); ABS Neutrophils 4.4 10^3/ul (1.5-7.7); Eosinophil % 1.7 %; Lymphocyte % 32.8 %; Nucleated Red Blood Cells % 0.1
[2021-06-09] MEDS: Nicotine GUM 2MG FRUIT FLAVOR PO PRN (17:44)
[2021-06-10] MEDS: Nicotine GUM 2MG FRUIT FLAVOR PO PRN (17:29)
[2021-06-11] MEDS: Nicotine GUM 2MG FRUIT FLAVOR PO PRN (15:31)
[2021-06-13] MEDS: Nicotine GUM 2MG FRUIT FLAVOR PO PRN (16:00)
[2021-06-14] MEDS: Nicotine GUM 2MG FRUIT FLAVOR PO PRN (17:19)
[2021-06-16 08:06] LABS: Hematocrit 44 % (42-52); Hemoglobin 14.8 g/dL (14.0-18.0); Mean Corpuscular HGB Conc 34 g/dL (31-36); Mean Corpuscular Hemoglobin 32 pg (27-31); Mean Corpuscular Volume 94 fL (80-94); Platelet Count 241 10^3/uL (150-450); Red Blood Count 4.66 10^6 /uL (4.18-5.48); Red Cell Distribution Width 13 % (10-15); White Blood Count 6.3 10^3/uL (3.5-10.8)
[2021-06-16 09:11] LABS: ABS Eosinophils 0.1 10^3/ul (0-0.6); ABS Lymphocytes 1.7 10^3/ul (1.0-4.8); ABS Monocytes 0.5 10^3/ul (0-0.8); ABS Neutrophils 3.9 10^3/ul (1.5-7.7); Eosinophil % 1.9 %; Lymphocyte % 26.4 %; Nucleated Red Blood Cells % 0.2
[2021-06-18] MEDS: Nicotine GUM 2MG FRUIT FLAVOR PO PRN (19:12)
[2021-06-21] MEDS: Nicotine GUM 2MG FRUIT FLAVOR PO PRN (18:00)
[2021-06-24 07:52] LABS: HDL Cholesterol 42.9 mg/dL
[2021-06-24 10:43] LABS: ABS Eosinophils 0.3 10^3/ul (0-0.6); ABS Lymphocytes 1.5 10^3/ul (1.0-4.8); ABS Monocytes 0.5 10^3/ul (0-0.8); ABS Neutrophils 3.5 10^3/ul (1.5-7.7); Eosinophil % 4.7 %; Hematocrit 43 % (42-52); Hemoglobin 14.6 g/dL (14.0-18.0); Lymphocyte % 26.6 %; Mean Corpuscular HGB Conc 34 g/dL (31-36); Mean Corpuscular Hemoglobin 32 pg (27-31); Mean Corpuscular Volume 94 fL (80-94); Mean Platelet Volume 9.4 fL (7.4-10.4); Nucleated Red Blood Cells % 0.1; Platelet Count 224 10^3/uL (150-450); Red Blood Count 4.61 10^6 /uL (4.18-5.48); Red Cell Distribution Width 13 % (10-15); White Blood Count 5.8 10^3/uL (3.5-10.8)
[2021-06-30 14:41] LABS: ABS Basophils 0.1 10^3/ul (0-0.2); ABS Eosinophils 0.4 10^3/ul (0-0.6); ABS Lymphocytes 2.5 10^3/ul (1.0-4.8); ABS Monocytes 0.4 10^3/ul (0-0.8); Eosinophil % 4.4 %; Hematocrit 45 % (42-52); Hemoglobin 15.6 g/dL (14.0-18.0); Lymphocyte % 30.2 %; Mean Corpuscular HGB Conc 35 g/dL (31-36); Mean Corpuscular Hemoglobin 32 pg (27-31); Mean Corpuscular Volume 93 fL (80-94); Mean Platelet Volume 9.2 fL (7.4-10.4); Platelet Count 253 10^3/uL (150-450); Red Blood Count 4.82 10^6 /uL (4.18-5.48); Red Cell Distribution Width 13 % (10-15); White Blood Count 8.4 10^3/uL (3.5-10.8)
[2021-07-07 12:39] LABS: ABS Basophils 0.1 10^3/ul (0-0.2); ABS Eosinophils 0.2 10^3/ul (0-0.6); ABS Monocytes 0.5 10^3/ul (0-0.8); ABS Neutrophils 3.8 10^3/ul (1.5-7.7); Eosinophil % 3.6 %; Hematocrit 44 % (42-52); Hemoglobin 15.3 g/dL (14.0-18.0); Lymphocyte % 30.1 %; Mean Corpuscular HGB Conc 35 g/dL (31-36); Mean Corpuscular Hemoglobin 32 pg (27-31); Mean Corpuscular Volume 93 fL (80-94); Mean Platelet Volume 9.1 fL (7.4-10.4); Platelet Count 243 10^3/uL (150-450); Red Blood Count 4.77 10^6 /uL (4.18-5.48); Red Cell Distribution Width 13 % (10-15); White Blood Count 6.6 10^3/uL (3.5-10.8)
[2021-07-11 11:22] LABS: Clozapine 344 ng/mL (350-600); Clozapine & Norclozapine Level 488 ng/mL; Norclozapine 144 ng/mL
[2021-07-14 15:09] LABS: ABS Basophils 0.1 10^3/ul (0-0.2); ABS Eosinophils 0.1 10^3/ul (0-0.6); ABS Lymphocytes 2.7 10^3/ul (1.0-4.8); ABS Monocytes 0.4 10^3/ul (0-0.8); ABS Neutrophils 5.4 10^3/ul (1.5-7.7); Eosinophil % 1.6 %; Hematocrit 46 % (42-52); Hemoglobin 15.7 g/dL (14.0-18.0); Lymphocyte % 30.6 %; Mean Corpuscular HGB Conc 35 g/dL (31-36); Mean Corpuscular Hemoglobin 33 pg (27-31); Mean Corpuscular Volume 94 fL (80-94); Mean Platelet Volume 9.4 fL (7.4-10.4); Nucleated Red Blood Cells % 0.2; Platelet Count 299 10^3/uL (150-450); Red Blood Count 4.84 10^6 /uL (4.18-5.48); Red Cell Distribution Width 13 % (10-15); White Blood Count 8.7 10^3/uL (3.5-10.8)
[2021-07-20 08:32] LABS: ABS Eosinophils 0.1 10^3/ul (0-0.6); ABS Monocytes 0.4 10^3/ul (0-0.8); ABS Neutrophils 4.3 10^3/ul (1.5-7.7); Eosinophil % 2.1 %; Hematocrit 43 % (42-52); Lymphocyte % 28.6 %; Mean Corpuscular HGB Conc 35 g/dL (31-36); Mean Corpuscular Hemoglobin 32 pg (27-31); Mean Corpuscular Volume 92 fL (80-94); Mean Platelet Volume 9.1 fL (7.4-10.4); Platelet Count 252 10^3/uL (150-450); Red Blood Count 4.73 10^6 /uL (4.18-5.48); Red Cell Distribution Width 13 % (10-15); White Blood Count 6.8 10^3/uL (3.5-10.8)
[2021-07-27 08:32] LABS: ABS Basophils 0.1 10^3/ul (0-0.2); ABS Eosinophils 0.2 10^3/ul (0-0.6); ABS Lymphocytes 2.5 10^3/ul (1.0-4.8); ABS Monocytes 0.5 10^3/ul (0-0.8); ABS Neutrophils 4.2 10^3/ul (1.5-7.7); Eosinophil % 2.4 %; Hematocrit 45 % (42-52); Hemoglobin 15.7 g/dL (14.0-18.0); Lymphocyte % 33.2 %; Mean Corpuscular HGB Conc 35 g/dL (31-36); Mean Corpuscular Hemoglobin 32 pg (27-31); Mean Corpuscular Volume 92 fL (80-94); Mean Platelet Volume 9.3 fL (7.4-10.4); Nucleated Red Blood Cells % 0.1; Platelet Count 257 10^3/uL (150-450); Red Blood Count 4.93 10^6 /uL (4.18-5.48); Red Cell Distribution Width 12 % (10-15); White Blood Count 7.4 10^3/uL (3.5-10.8)
[2021-07-30 08:13] VITALS: BP 120/76
== END 2021-07-30 10:20 | DRG 750 ==
LOC: ED 11:46 → BSU 13:54 → ED 14:35 → BSU 05-18 23:07
PROVIDERS: ADMIT Psychiatry & Neurology Psychiatry; ATTEND Psychiatry & Neurology Psychiatry

== ENCOUNTER 2023-02-02 19:10 | Inpatient (IN) ==
[2023-02-02 20:39] LABS: ABS Basophils 0.1 10^3/ul (0-0.2); ABS Eosinophils 0.1 10^3/ul (0-0.6); ABS Lymphocytes 3.1 10^3/ul (1.0-4.8); ABS Monocytes 0.8 10^3/ul (0-0.8); ABS Neutrophils 7.1 10^3/ul (1.5-7.7); Hematocrit 43 % (42-52); Hemoglobin 14.8 g/dL (14.0-18.0); Lymphocyte % 27.8 %; Mean Corpuscular HGB Conc 34 g/dL (31-36); Mean Corpuscular Hemoglobin 32 pg (27-31); Mean Corpuscular Volume 92 fL (80-94); Mean Platelet Volume 8.7 fL (7.4-10.4); Nucleated Red Blood Cells % 0.2; Platelet Count 337 10^3/uL (150-450); Red Blood Count 4.69 10^6 /uL (4.18-5.48); Red Cell Distribution Width 13 % (10-15); White Blood Count 11.3 10^3/uL (3.5-10.8)
[2023-02-02 21:03] LABS: ALT 20 U/L (7-52); AST 15 U/L (13-39); Acetaminophen < 15 mcg/mL; Albumin 4.9 g/dL (3.2-5.2); Albumin/Globulin Ratio 2.5 (1-3); Alcohol, S < 13 mg/dL (<13); Alkaline Phosphatase 59 U/L (35-149); Anion Gap 7 mmol/L (2-11); Blood Urea Nitrogen 15 mg/dL (6-24); CO2 Carbon Dioxide 28 mmol/L (22-32); Calcium 10.2 mg/dL (8.6-10.3); Chloride 103 mmol/L (101-111); Creatinine, Serum 1.03 mg/dL (0.67-1.17); Glucose 111 mg/dL (70-100); Potassium 3.9 mmol/L (3.5-5.0); Salicylate < 2.50 mg/dL (<30); Sodium 138 mmol/L (135-145); Total Protein 6.9 g/dL (6.4-8.9); eGFR CKD-EPI 105.3 (>60)
[2023-02-02 21:05] LABS: Urine Benzodiazepine Screen None Detected (None Detect); Urine Cannabinoids Screen Presumptive Positive (None Detect); Urine Opiates Screen None Detected (None Detect)
[2023-02-02 21:16] LABS: TSH Ultra Thyroid Stim Horm 5.48 mcIU/mL (0.34-5.60)
[2023-02-02 21:25] LABS: Urine Appearance Clear; Urine Bilirubin Negative (Negative); Urine Blood Negative (Negative); Urine Color Colorless; Urine Glucose Negative (Negative); Urine Ketones Negative (Negative); Urine Nitrite Negative (Negative); Urine Protein Negative (Negative); Urine Specific Gravity 1.002 (1.002-1.030); Urine Urobilinogen Negative (Negative)
[2023-02-03] MEDS ORDERED: Al Hydrox/Mg Hydrox/Simet LIQ 30 ML UDC PO PRN (01:07)
[2023-02-03 01:23] LABS: Free T4 0.92 ng/dL (0.61-1.12)
[2023-02-03] MEDS ORDERED: Nicotine GUM 2MG FRUIT FLAVOR PO PRN (02:00)
[2023-02-03] MEDS: Nicotine PATCH 21 MG/24 HR PATCH TRANSDERM SCH (07:18)
[2023-02-03] MEDS: Vitamin THERAPEUTIC TAB PO SCH (07:18)
[2023-02-04] MEDS: Vitamin THERAPEUTIC TAB PO SCH (08:27)
[2023-02-04] MEDS: Nicotine PATCH 21 MG/24 HR PATCH TRANSDERM SCH (08:27)
[2023-02-06 08:45] LABS: HDL Cholesterol 42.5 mg/dL
[2023-02-08 18:56] LABS: ABS Basophils 0.1 10^3/ul (0-0.2); ABS Eosinophils 0.1 10^3/ul (0-0.6); ABS Monocytes 0.7 10^3/ul (0-0.8); ABS Neutrophils 5.4 10^3/ul (1.5-7.7); Eosinophil % 1.2 %; Hematocrit 43 % (42-52); Hemoglobin 14.7 g/dL (14.0-18.0); Lymphocyte % 32.2 %; Mean Corpuscular HGB Conc 34 g/dL (31-36); Mean Corpuscular Hemoglobin 31 pg (27-31); Mean Corpuscular Volume 91 fL (80-94); Nucleated Red Blood Cells % 0.1; Platelet Count 288 10^3/uL (150-450); Red Blood Count 4.69 10^6 /uL (4.18-5.48); Red Cell Distribution Width 13 % (10-15); White Blood Count 9.2 10^3/uL (3.5-10.8)
[2023-02-11] MEDS ORDERED: Magnesium Hydroxide LIQ 30 ML UDC PO PRN (17:32)
[2023-02-14 11:36] VITALS: BP 149/80
== END 2023-02-14 12:47 | disposition home or self-care (01) | DRG 750 ==
LOC: ED 19:10 → EDHOLD 23:59 → BSU 02-03 01:33
PROVIDERS: ADMIT Psychiatry & Neurology Psychiatry; ATTEND Psychiatry & Neurology Psychiatry

== ENCOUNTER 2023-04-14 17:38 | Inpatient (IN) ==
[2023-04-14 19:15] LABS: ABS Basophils 0.1 10^3/uL (0.0-0.1); ABS Eosinophils 0.2 10^3/uL (0.0-0.5); ABS Lymphocytes 2.8 10^3/uL (1.0-4.8); ABS Monocytes 0.6 10^3/uL (0.0-1.1); ABS Neutrophils 4.7 10^3/uL (1.5-7.6); ABS Nucleated RBC 0.03 10^3/ul; Eosinophil % 2.4 %; Hematocrit 43.6 % (38-53); Lymphocyte % 33.5 %; Mean Corpuscular Hemoglobin 30.5 pg (27-33); Mean Corpuscular Hgb Conc 34.4 g/dL (31-36); Mean Corpuscular Volume 88.6 fL (80-97); Mean Platelet Volume 9.3 fL (7.5-11.2); Nucleated Red Blood Cells % 0.3 /100 WBC (0.0-0.4); Platelet Count 313 10^3/uL (150-450); Red Blood Count 4.92 10^6/uL (4.06-5.63); Red Cell Distribution Width 13.2 % (12-17); White Blood Count 8.4 10^3/uL (3.6-10.2)
[2023-04-14 19:29] LABS: Urine Benzodiazepine Screen None Detected (None Detect); Urine Cannabinoids Screen Presumptive Positive (None Detect); Urine Opiates Screen None Detected (None Detect)
[2023-04-14 19:51] LABS: ALT 27 U/L (7-52); AST 19 U/L (13-39); Albumin 4.7 g/dL (3.2-5.2); Alcohol, S < 13 mg/dL (<13); Alkaline Phosphatase 62 U/L (35-149); Anion Gap 7 mmol/L (2-16); Blood Urea Nitrogen 14 mg/dL (6-24); CO2 Carbon Dioxide 26 mmol/L (22-32); Calcium 9.9 mg/dL (8.6-10.3); Chloride 104 mmol/L (101-111); Creatinine, Serum 0.96 mg/dL (0.67-1.17); Globulin 2.3 g/dL (2-4); Glucose 88 mg/dL (70-100); Potassium 4.1 mmol/L (3.5-5.0); Salicylate < 2.50 mg/dL (<30); Sodium 137 mmol/L (135-145); eGFR CKD-EPI 113.9 (>60)
[2023-04-14 19:52] LABS: Acetaminophen < 15 mcg/mL
[2023-04-14 20:05] LABS: TSH Ultra Thyroid Stim Horm 5.88 mcIU/mL (0.34-5.60)
[2023-04-14 20:24] LABS: HIV 4th Generation Nonreactive (Nonreactive)
[2023-04-15] MEDS: Vitamin THERAPEUTIC TAB PO SCH (07:42)
[2023-04-15] MEDS: Nicotine GUM 2MG FRUIT FLAVOR PO PRN (07:44)
[2023-04-15] MEDS: Nicotine PATCH 21 MG/24 HR PATCH TRANSDERM SCH (07:44)
[2023-04-16 08:35] LABS: HDL Cholesterol 32.9 mg/dL
[2023-04-16 08:53] LABS: Free T4 1.1 ng/dL (0.61-1.12)
[2023-04-16] MEDS: Vitamin THERAPEUTIC TAB PO SCH (09:06)
[2023-04-16] MEDS: Nicotine GUM 2MG FRUIT FLAVOR PO PRN ×2 (09:07→18:22)
[2023-04-16] MEDS: Nicotine PATCH 21 MG/24 HR PATCH TRANSDERM SCH (09:08)
[2023-04-16 12:11] LABS: Urine Appearance Cloudy; Urine Bilirubin Negative (Negative); Urine Blood Negative (Negative); Urine Color Yellow; Urine Glucose Negative (Negative); Urine Ketones Trace (Negative); Urine Nitrite Negative (Negative); Urine Protein Negative (Negative); Urine Specific Gravity 1.014 (1.002-1.030); Urine Urobilinogen Negative (Negative)
[2023-04-17] MEDS: Vitamin THERAPEUTIC TAB PO SCH (07:55)
[2023-04-17] MEDS: Nicotine PATCH 21 MG/24 HR PATCH TRANSDERM SCH (07:56)
[2023-04-17] MEDS: Nicotine GUM 2MG FRUIT FLAVOR PO PRN (21:13)
[2023-04-18] MEDS: Nicotine PATCH 21 MG/24 HR PATCH TRANSDERM SCH (07:34)
[2023-04-18] MEDS: Vitamin THERAPEUTIC TAB PO SCH (07:35)
[2023-04-18] MEDS: Nicotine GUM 2MG FRUIT FLAVOR PO PRN ×2 (07:35→18:16)
[2023-04-19] MEDS: Nicotine PATCH 21 MG/24 HR PATCH TRANSDERM SCH (08:25)
[2023-04-19] MEDS: Vitamin THERAPEUTIC TAB PO SCH (08:25)
[2023-04-19] MEDS: Nicotine GUM 2MG FRUIT FLAVOR PO PRN (21:39)
[2023-04-20] MEDS: Vitamin THERAPEUTIC TAB PO SCH (07:42)
[2023-04-20] MEDS: Nicotine PATCH 21 MG/24 HR PATCH TRANSDERM SCH (07:44)
[2023-04-20 08:01] LABS: ABS Basophils 0.1 10^3/uL (0.0-0.1); ABS Eosinophils 0.1 10^3/uL (0.0-0.5); ABS Lymphocytes 2.6 10^3/uL (1.0-4.8); ABS Monocytes 0.4 10^3/uL (0.0-1.1); ABS Neutrophils 2.9 10^3/uL (1.5-7.6); ABS Nucleated RBC 0.02 10^3/ul; Eosinophil % 2.2 %; Hematocrit 43.7 % (38-53); Hemoglobin 15.1 g/dL (13.2-16.3); Lymphocyte % 43.1 %; Mean Corpuscular Hemoglobin 30.5 pg (27-33); Mean Corpuscular Hgb Conc 34.6 g/dL (31-36); Mean Corpuscular Volume 88.2 fL (80-97); Mean Platelet Volume 9.1 fL (7.5-11.2); Nucleated Red Blood Cells % 0.3 /100 WBC (0.0-0.4); Platelet Count 282 10^3/uL (150-450); Red Blood Count 4.95 10^6/uL (4.06-5.63)
[2023-04-20] MEDS: Nicotine GUM 2MG FRUIT FLAVOR PO PRN ×3 (09:22→18:04)
[2023-04-21] MEDS: Nicotine PATCH 21 MG/24 HR PATCH TRANSDERM SCH (07:30)
[2023-04-21] MEDS: Vitamin THERAPEUTIC TAB PO SCH (07:30)
[2023-04-21] MEDS: Nicotine GUM 2MG FRUIT FLAVOR PO PRN ×4 (09:35→18:32)
[2023-04-22] MEDS: Vitamin THERAPEUTIC TAB PO SCH (07:08)
[2023-04-22] MEDS: Nicotine PATCH 21 MG/24 HR PATCH TRANSDERM SCH (07:09)
[2023-04-22] MEDS: Al Hydrox/Mg Hydrox/Simet LIQ 30 ML UDC PO PRN (18:37)
[2023-04-23] MEDS: Vitamin THERAPEUTIC TAB PO SCH (08:33)
[2023-04-23] MEDS: Nicotine PATCH 21 MG/24 HR PATCH TRANSDERM SCH (08:33)
[2023-04-23] MEDS: Nicotine GUM 2MG FRUIT FLAVOR PO PRN ×3 (08:35→15:33)
[2023-04-23] MEDS: Al Hydrox/Mg Hydrox/Simet LIQ 30 ML UDC PO PRN (16:27)
[2023-04-24] MEDS: Vitamin THERAPEUTIC TAB PO SCH (07:25)
[2023-04-24] MEDS: Nicotine PATCH 21 MG/24 HR PATCH TRANSDERM SCH (07:25)
[2023-04-24] MEDS: Nicotine GUM 2MG FRUIT FLAVOR PO PRN (07:27)
[2023-04-25] MEDS: Vitamin THERAPEUTIC TAB PO SCH ×2 (06:10→07:48)
[2023-04-25] MEDS: Nicotine PATCH 21 MG/24 HR PATCH TRANSDERM SCH (07:41)
[2023-04-26] MEDS: Vitamin THERAPEUTIC TAB PO SCH (09:54)
[2023-04-26] MEDS: Nicotine PATCH 21 MG/24 HR PATCH TRANSDERM SCH (09:55)
[2023-04-26] MEDS: Nicotine GUM 2MG FRUIT FLAVOR PO PRN (17:31)
[2023-04-27] MEDS: Vitamin THERAPEUTIC TAB PO SCH (07:21)
[2023-04-27] MEDS: Nicotine GUM 2MG FRUIT FLAVOR PO PRN ×3 (07:21→18:21)
[2023-04-27] MEDS: Nicotine PATCH 21 MG/24 HR PATCH TRANSDERM SCH ×2 (07:48→14:16)
[2023-04-27 08:29] LABS: ABS Eosinophils 0.1 10^3/uL (0.0-0.5); ABS Lymphocytes 2.2 10^3/uL (1.0-4.8); ABS Monocytes 0.4 10^3/uL (0.0-1.1); ABS Neutrophils 3.8 10^3/uL (1.5-7.6); ABS Nucleated RBC 0.01 10^3/ul; Eosinophil % 1.8 %; Hematocrit 43.3 % (38-53); Hemoglobin 14.7 g/dL (13.2-16.3); Mean Corpuscular Hemoglobin 30.4 pg (27-33); Mean Corpuscular Volume 89.5 fL (80-97); Mean Platelet Volume 9.3 fL (7.5-11.2); Nucleated Red Blood Cells % 0.1 /100 WBC (0.0-0.4); Platelet Count 279 10^3/uL (150-450); Red Blood Count 4.84 10^6/uL (4.06-5.63); Red Cell Distribution Width 12.9 % (12-17); White Blood Count 6.5 10^3/uL (3.6-10.2)
[2023-04-27] MEDS: Al Hydrox/Mg Hydrox/Simet LIQ 30 ML UDC PO PRN (09:08)
[2023-04-28] MEDS: Vitamin THERAPEUTIC TAB PO SCH (09:19)
[2023-04-28] MEDS: Nicotine PATCH 21 MG/24 HR PATCH TRANSDERM SCH (09:20)
[2023-04-28 11:05] VITALS: BP 150/97
[2023-04-28] MEDS: Nicotine GUM 2MG FRUIT FLAVOR PO PRN ×2 (13:48→17:53)
[2023-04-29] MEDS: Vitamin THERAPEUTIC TAB PO SCH ×2 (09:39→10:18)
[2023-04-29] MEDS: Nicotine PATCH 21 MG/24 HR PATCH TRANSDERM SCH (09:39)
[2023-04-29] MEDS: Nicotine GUM 2MG FRUIT FLAVOR PO PRN (10:18)
[2023-04-29 23:35] LABS: Clozapine 710 ng/mL (350-600); Clozapine & Norclozapine Level 972 ng/mL; Norclozapine 262 ng/mL
== END 2023-04-29 11:24 | disposition home or self-care (01) | DRG 750 ==
LOC: ED 17:38 → EDHOLD 20:55 → BSU 22:02
PROVIDERS: ADMIT Psychiatry & Neurology Psychiatry; ATTEND Psychiatry & Neurology Psychiatry

== ENCOUNTER 2023-05-24 12:27 | Inpatient (IN) ==
[2023-05-24] MEDS ORDERED: Al Hydrox/Mg Hydrox/Simet LIQ 30 ML UDC PO PRN (14:05)
[2023-05-25] MEDS: Vitamin THERAPEUTIC TAB PO SCH (11:01)
[2023-05-26] MEDS: Vitamin THERAPEUTIC TAB PO SCH (07:23)
[2023-05-26 09:13] LABS: ABS Eosinophils 0.1 10^3/uL (0.0-0.5); ABS Lymphocytes 1.9 10^3/uL (1.0-4.8); ABS Monocytes 0.3 10^3/uL (0.0-1.1); ABS Neutrophils 3.7 10^3/uL (1.5-7.6); ABS Nucleated RBC 0.01 10^3/ul; Eosinophil % 1.3 %; Hematocrit 40.4 % (38-53); Lymphocyte % 31.8 %; Mean Corpuscular Hemoglobin 30.2 pg (27-33); Mean Corpuscular Hgb Conc 34.6 g/dL (31-36); Mean Corpuscular Volume 87.4 fL (80-97); Mean Platelet Volume 9.2 fL (7.5-11.2); Nucleated Red Blood Cells % 0.1 /100 WBC (0.0-0.4); Platelet Count 264 10^3/uL (150-450); Red Blood Count 4.63 10^6/uL (4.06-5.63); Red Cell Distribution Width 12.7 % (12-17)
[2023-05-26 09:32] LABS: Albumin 4.3 g/dL (3.2-5.2); Calcium 9.3 mg/dL (8.6-10.3); Creatinine, Serum 0.87 mg/dL (0.67-1.17); Globulin 2.2 g/dL (2-4); Potassium 4.1 mmol/L (3.5-5.0); Total Bilirubin 0.5 mg/dL (0.2-1.0); Total Protein 6.5 g/dL (6.4-8.9); eGFR CKD-EPI 124.3 (>60)
[2023-05-27] MEDS: Vitamin THERAPEUTIC TAB PO SCH (08:56)
[2023-05-28] MEDS: Senna TAB 8.6 mg TAB PO SCH (07:51)
[2023-05-28] MEDS: Vitamin THERAPEUTIC TAB PO SCH ×2 (09:21→12:48)
[2023-05-29] MEDS: Senna TAB 8.6 mg TAB PO SCH ×2 (10:10→15:36)
[2023-05-29] MEDS: Vitamin THERAPEUTIC TAB PO SCH ×2 (10:10→15:36)
[2023-05-30] MEDS: Senna TAB 8.6 mg TAB PO SCH (07:29)
[2023-05-30] MEDS: Vitamin THERAPEUTIC TAB PO SCH (07:29)
[2023-05-31] MEDS: Senna TAB 8.6 mg TAB PO SCH (12:44)
[2023-05-31] MEDS: Vitamin THERAPEUTIC TAB PO SCH (12:44)
[2023-06-01] MEDS: Senna TAB 8.6 mg TAB PO SCH (07:24)
[2023-06-01] MEDS: Vitamin THERAPEUTIC TAB PO SCH (07:24)
[2023-06-02] MEDS: Senna TAB 8.6 mg TAB PO SCH (15:17)
[2023-06-02] MEDS: Vitamin THERAPEUTIC TAB PO SCH (15:18)
[2023-06-03] MEDS: Vitamin THERAPEUTIC TAB PO SCH (08:32)
[2023-06-03] MEDS: Senna TAB 8.6 mg TAB PO SCH (08:32)
[2023-06-03 08:39] LABS: ABS Basophils 0.1 10^3/uL (0.0-0.1); ABS Eosinophils 0.1 10^3/uL (0.0-0.5); ABS Lymphocytes 2.3 10^3/uL (1.0-4.8); ABS Monocytes 0.4 10^3/uL (0.0-1.1); ABS Neutrophils 3.9 10^3/uL (1.5-7.6); ABS Nucleated RBC 0.01 10^3/ul; Eosinophil % 1.5 %; Hematocrit 43.9 % (38-53); Lymphocyte % 33.9 %; Mean Corpuscular Hemoglobin 30.5 pg (27-33); Mean Corpuscular Hgb Conc 34.2 g/dL (31-36); Mean Corpuscular Volume 89.1 fL (80-97); Mean Platelet Volume 9.5 fL (7.5-11.2); Nucleated Red Blood Cells % 0.2 /100 WBC (0.0-0.4); Platelet Count 298 10^3/uL (150-450); Red Blood Count 4.92 10^6/uL (4.06-5.63); Red Cell Distribution Width 13.2 % (12-17); White Blood Count 6.8 10^3/uL (3.6-10.2)
[2023-06-04] MEDS: Vitamin THERAPEUTIC TAB PO SCH (10:32)
[2023-06-04] MEDS: Senna TAB 8.6 mg TAB PO SCH (10:32)
[2023-06-05] MEDS: Vitamin THERAPEUTIC TAB PO SCH (08:33)
[2023-06-05] MEDS: Senna TAB 8.6 mg TAB PO SCH (08:33)
[2023-06-06] MEDS: Vitamin THERAPEUTIC TAB PO SCH (07:23)
[2023-06-06] MEDS: Senna TAB 8.6 mg TAB PO SCH (07:23)
[2023-06-06 09:05] VITALS: BP 171/89
== END 2023-06-06 10:34 | disposition home or self-care (01) | DRG 750 ==
LOC: ED 12:27 → EDHOLD 14:05 → BSU 14:52
PROVIDERS: ADMIT Psychiatry & Neurology Psychiatry; ATTEND Psychiatry & Neurology Psychiatry

== ENCOUNTER 2024-06-24 22:03 | Inpatient (IN) ==
[2024-06-24 23:13] LABS: ABS Basophils 0.1 10^3/uL (0.0-0.1); ABS Eosinophils 0.1 10^3/uL (0.0-0.5); ABS Lymphocytes 2.8 10^3/uL (1.0-4.8); ABS Monocytes 0.8 10^3/uL (0.0-1.1); ABS Neutrophils 7.1 10^3/uL (1.5-7.6); ABS Nucleated RBC 0.01 10^3/ul; Eosinophil % 0.8 %; Hematocrit 43.9 % (38-53); Hemoglobin 15.3 g/dL (13.2-16.3); Lymphocyte % 25.9 %; Mean Corpuscular Hemoglobin 31.3 pg (27-33); Mean Corpuscular Hgb Conc 34.8 g/dL (31-36); Mean Platelet Volume 9.2 fL (7.5-11.2); Nucleated Red Blood Cells % 0.1 %/100WBC (0.0-0.8); Platelet Count 326 10^3/uL (150-450); Red Blood Count 4.88 10^6/uL (4.06-5.63); Red Cell Distribution Width 12.8 % (12-17)
[2024-06-24 23:24] LABS: Urine Appearance Clear; Urine Bilirubin Negative (Negative); Urine Blood Negative (Negative); Urine Color Colorless; Urine Glucose Negative (Negative); Urine Ketones Negative (Negative); Urine Nitrite Negative (Negative); Urine Protein Negative (Negative); Urine Specific Gravity 1.002 (1.002-1.030); Urine Urobilinogen Negative (Negative)
[2024-06-24 23:30] LABS: Urine Benzodiazepine Screen None Detected (None Detect); Urine Cannabinoids Screen Presumptive Positive (None Detect); Urine Opiates Screen None Detected (None Detect)
[2024-06-24 23:54] LABS: Chloride 102 mmol/L (101-111); Sodium 139 mmol/L (135-145)
[2024-06-24 23:55] LABS: ALT 47 U/L (7-52); AST 28 U/L (13-39); Acetaminophen < 15 mcg/mL; Albumin 4.8 g/dL (3.2-5.2); Alcohol, S < 13 mg/dL (<13); Alkaline Phosphatase 66 U/L (35-149); Anion Gap 13 mmol/L (2-16); Blood Urea Nitrogen 13 mg/dL (6-24); CO2 Carbon Dioxide 24 mmol/L (22-32); Calcium 10.2 mg/dL (8.6-10.3); Globulin 2.4 g/dL (2-4); Glucose 100 mg/dL (70-100); Salicylate < 2.50 mg/dL (<30); Total Bilirubin 0.7 mg/dL (0.2-1.0); Total Protein 7.2 g/dL (6.4-8.9); eGFR CKD-EPI 96.1 (>60)
[2024-06-25 00:09] LABS: TSH Ultra Thyroid Stim Horm 3.66 mcIU/mL (0.34-5.60)
[2024-06-25] MEDS: Vitamin THERAPEUTIC TAB PO SCH (08:18)
[2024-06-26] MEDS: OLANZapine 5 mg TAB *ODT PO PRN (21:03)
[2024-06-28 08:43] LABS: HDL Cholesterol 43.4 mg/dL
[2024-06-28] MEDS: Nicotine GUM 4MG FRUIT FLAVOR PO PRN (15:48)
[2024-06-28] MEDS: OLANZapine 5 mg TAB *ODT PO PRN (22:06)
[2024-07-04] MEDS: Al Hydrox/Mg Hydrox/Simet LIQ 30 ML UDC PO PRN (11:43)
[2024-07-06 11:04] VITALS: BP 154/98
== END 2024-07-06 13:03 | disposition home or self-care (01) | DRG 750 ==
LOC: ED 22:03 → EDHOLD 06-25 01:28 → BSU 06-25 02:39
PROVIDERS: ADMIT Psychiatry & Neurology Psychiatry; ATTEND Psychiatry & Neurology Psychiatry

== ENCOUNTER 2024-07-11 08:44 | Inpatient (IN) ==
[2024-07-11 09:44] LABS: Urine Appearance Clear; Urine Color Light-Yellow; Urine Specific Gravity 1.019 (1.002-1.030)
[2024-07-11 09:45] LABS: Urine Bilirubin Negative (Negative); Urine Blood Negative (Negative); Urine Glucose Negative (Negative); Urine Ketones Negative (Negative); Urine Nitrite Negative (Negative); Urine Protein Negative (Negative); Urine Urobilinogen Negative (Negative)
[2024-07-11] MEDS ORDERED: Al Hydrox/Mg Hydrox/Simet LIQ 30 ML UDC PO PRN (15:25)
[2024-07-11 16:06] LABS: ABS Basophils 0.1 10^3/uL (0.0-0.1); ABS Eosinophils 0.1 10^3/uL (0.0-0.5); ABS Lymphocytes 2.7 10^3/uL (1.0-4.8); ABS Monocytes 0.5 10^3/uL (0.0-1.1); ABS Neutrophils 5.4 10^3/uL (1.5-7.6); ABS Nucleated RBC 0.01 10^3/ul; Hematocrit 45.7 % (38-53); Hemoglobin 15.6 g/dL (13.2-16.3); Lymphocyte % 30.7 %; Mean Corpuscular Hemoglobin 31.1 pg (27-33); Mean Corpuscular Hgb Conc 34.2 g/dL (31-36); Mean Corpuscular Volume 90.9 fL (80-97); Nucleated Red Blood Cells % 0.1 %/100WBC (0.0-0.8); Platelet Count 345 10^3/uL (150-450); Red Blood Count 5.03 10^6/uL (4.06-5.63); Red Cell Distribution Width 13.1 % (12-17); White Blood Count 8.8 10^3/uL (3.6-10.2)
[2024-07-11 16:33] LABS: ALT 56 U/L (7-52); AST 28 U/L (13-39); Acetaminophen < 15 mcg/mL; Albumin 4.9 g/dL (3.2-5.2); Albumin/Globulin Ratio 2.1 (1-3); Alcohol, S < 13 mg/dL (<13); Alkaline Phosphatase 65 U/L (35-149); Anion Gap 10 mmol/L (2-16); Blood Urea Nitrogen 15 mg/dL (6-24); CO2 Carbon Dioxide 24 mmol/L (22-32); Calcium 10.4 mg/dL (8.6-10.3); Chloride 103 mmol/L (101-111); Creatinine, Serum 0.93 mg/dL (0.67-1.17); Globulin 2.3 g/dL (2-4); Glucose 113 mg/dL (70-100); Potassium 4.1 mmol/L (3.5-5.0); Salicylate < 2.50 mg/dL (<30); Sodium 137 mmol/L (135-145); Total Bilirubin 0.6 mg/dL (0.2-1.0); Total Protein 7.2 g/dL (6.4-8.9); eGFR CKD-EPI 117.6 (>60)
[2024-07-11 16:45] LABS: TSH Ultra Thyroid Stim Horm 4.96 mcIU/mL (0.34-5.60)
[2024-07-12 12:40] LABS: Chlamydia trachomatis NAA Negative (Negative); Neisseria gonorrhoeae (GC) NAA Negative (Negative)
[2024-07-13] MEDS: Nicotine Lozenge mini 4 MG LOZNG.MINI MT PRN (16:01)
[2024-07-14] MEDS: Nicotine GUM 4MG FRUIT FLAVOR PO PRN (17:21)
[2024-07-24 09:55] VITALS: BP 131/84
[2024-07-25] MEDS ORDERED: COVID VAC 23-24(12+)(Moderna) SYR 0.5 ML IM ONE (12:00)
[2024-07-25] MEDS: COVID VAC 23-24(12+)(Moderna) SYR 0.5 ML IM ONE (12:42)
== END 2024-07-25 13:00 | disposition home or self-care (01) | DRG 750 ==
LOC: ED 08:44 → EDHOLD 15:25 → BSU 17:33
PROVIDERS: ADMIT Psychiatry & Neurology Psychiatry; ATTEND Psychiatry & Neurology Psychiatry

== ENCOUNTER 2024-11-23 12:57 | Inpatient (IN) ==
[2024-11-23 14:12] LABS: Urine Appearance Clear; Urine Bilirubin Negative (Negative); Urine Blood Negative (Negative); Urine Color Light-Yellow; Urine Glucose Negative (Negative); Urine Ketones Negative (Negative); Urine Nitrite Negative (Negative); Urine Protein Negative (Negative); Urine Specific Gravity 1.023 (1.002-1.030); Urine Urobilinogen Negative (Negative); Urine pH 6.5 (5.0-8.0)
[2024-11-23 14:21] LABS: Hematocrit 46.9 % (38-53); Mean Corpuscular Hemoglobin 31.7 pg (27-33); Mean Corpuscular Hgb Conc 34.1 g/dL (31-36); Mean Corpuscular Volume 92.9 fL (80-97); Red Blood Count 5.04 10^6/uL (4.06-5.63); Red Cell Distribution Width 13.4 % (12-17); White Blood Count 9.5 10^3/uL (3.6-10.2)
[2024-11-23] MEDS ORDERED: Al Hydrox/Mg Hydrox/Simet LIQ 30 ML UDC PO PRN (14:44)
[2024-11-23 14:51] LABS: Albumin 4.8 g/dL (3.5-5.7); Albumin/Globulin Ratio 1.9 (1-3); Calcium 9.9 mg/dL (8.6-10.3); Creatinine, Serum 0.93 mg/dL (0.67-1.17); Globulin 2.5 g/dL (2-4); Potassium 4.4 mmol/L (3.5-5.0); Total Bilirubin 0.8 mg/dL (0.2-1.0); Total Protein 7.3 g/dL (6.4-8.9); eGFR CKD-EPI 117.6 (>60)
[2024-11-23 14:58] LABS: ABS Basophils 0.1 10^3/uL (0.0-0.1); ABS Eosinophils 0.1 10^3/uL (0.0-0.5); ABS Lymphocytes 2.4 10^3/uL (1.0-4.8); ABS Monocytes 0.5 10^3/uL (0.0-1.1); ABS Neutrophils 6.4 10^3/uL (1.5-7.6); ABS Nucleated RBC 0.01 10^3/ul; Eosinophil % 0.9 %; Giant Platelets Present; Lymphocyte % 25.3 %; Mean Platelet Volume 9.3 fL (7.5-11.2); Nucleated Red Blood Cells % 0.1 %/100WBC (0.0-0.8); Platelet Count 305 10^3/uL (150-450)
[2024-11-23 14:59] LABS: Urine Benzodiazepine Screen None Detected (None Detect); Urine Cannabinoids Screen Presumptive Positive (None Detect); Urine Opiates Screen None Detected (None Detect)
[2024-11-23] MEDS: ARIPiprazole Maintena (NF) 400 MG SYRINGE IM SCH (17:41)
[2024-12-03 09:22] LABS: HDL Cholesterol 34.9 mg/dL
[2024-12-07 08:53] VITALS: BP 134/83
== END 2024-12-07 13:20 | disposition home or self-care (01) | DRG 750 ==
LOC: ED 12:57 → EDHOLD 14:44 → BSU 15:37
PROVIDERS: ADMIT Psychiatry & Neurology Psychiatry; ATTEND Psychiatry & Neurology Psychiatry